=== PATIENT | male | born 1930 | race Caucasian/White ===

== ENCOUNTER 2017-11-03 13:02 | Observation (INO) | payer MEDICARE, BC ==
[2017-11-03] MEDS ORDERED: Aspirin 81 MG Tab.Chew PO ONE (13:07)
--- NOTE | 2017-11-03 13:13 | EDM.PDOC ---
ED HPI GENERAL MEDICAL PROBLEM - General Chief Complaint: Chest Pain Stated Complaint: PT WOULD LIKE TO BE SEEN Time Seen by Provider: 11/03/17 13:07 Source of Information: Reports: Patient History Limitations: Reports: No Limitations - History of Present Illness INITIAL COMMENTS - FREE TEXT/NARRATIVE: HISTORY AND PHYSICAL: History of present illness: Patient is an 87-year-old male who presents to the emergency room today with complaints of "memory being off" and a episode of chest pain that occurred last night. A family friend had visited the patient this morning when he told her that he had chest pain last evening. They continued to talk and she felt that he appeared slightly confused. She states this confusion is "sometimes normal" but wanted him evaluated. The family friend reports that "for him to mention he had chest pain and must had been bothering him". Patient does live alone and has family and friends that check on him frequently. Currently patient states that he feels like his "memory is off" and does not remember telling the family friend about the chest pain episode. He denies pain anywhere or any systemic complaints. Patient denies any fever, chills, headache or change in vision. He denies any chest pain, shortness of breath, abdominal pain, nausea, vomiting or diarrhea/constipation. Denies any recent falls, trauma or injury. Patient has a past medical history of hypertension, depression and BPH. Former smoker. Denies any personal cardiac history or VA. Review of systems: As per history of present illness and below otherwise all systems reviewed and negative. Past medical history: As per history of present illness and as reviewed below otherwise noncontributory. Surgical history: As per history of present illness and as reviewed below otherwise noncontributory. Social history: No reported history of drug or alcohol abuse. Family history: As per history of present illness and as reviewed below otherwise noncontributory. Physical exam: General: Well-developed and well-nourished 87-year-old male. Alert and oriented. Nontoxic appearing and in no acute distress. HEENT: Atraumatic, normocephalic, pupils equal and reactive bilaterally, negative for conjunctival pallor or scleral icterus, mucous membranes moist, throat clear, neck supple, nontender, trachea midline. No drooling or trismus noted. No meningeal signs Lungs: Clear to auscultation, breath sounds equal bilaterally, chest nontender. Heart: S1S2, regular rate and rhythm without overt murmur Abdomen: Soft, nondistended, nontender. Negative for masses or hepatosplenomegaly. Negative for costovertebral tenderness. Pelvis: Stable nontender. Genitourinary: Deferred. Rectal: Deferred. Skin: Intact, warm, dry. No lesions or rashes noted. Extremities: Atraumatic, moves all extremities per self without difficulty or deficits. Gait is steady and even. He is negative for cords or calf pain. Neurovascular unremarkable. Neuro: Awake, alert, oriented. Cranial nerves II through XII unremarkable. Cerebellum unremarkable. Motor and sensory unremarkable throughout. Exam nonfocal. Notes: Patient appears alert and oriented. Will do a cardiac workup with head CT. No defiects noted, no slurred speech, or weakness. GCS 15. Vitals remain stable. Patient remains pain free. Chest x-ray is normal; no sign of pneumonia or infiltrate. Lab work is within normal limits. I encouraged the patient to stay for observation for his chest pain to rule out VA and to observe his confusion. Initially the patient was agreeable to staying. The family friend states that he has changed his mind and is unsure if he wants to stay overnight at the hospital. He is currently on the phone with his daughter to consult her. Patient agreeable to staying for observation. Dr. Prescott (Resident) here to evaluate patient for admission. Diagnostics: CBC, CMP, troponin, EKG, chest x-ray, head CT Therapeutics: Saline lock, aspirin Impression: Chest Pain r/o VA Confusion Plan: Observation telemetry Definitive disposition and diagnosis as appropriate pending reevaluation and review of above. Chest Pain Score (Numeric/FACES): 0 - Related Data Allergies Allergy/AdvReac Type Severity Reaction Status Date / Time No Known Allergies Allergy Verified 11/03/17 13:16 Home Meds: Home Meds Hydrochlorothiazide/Losartan [Hyzaar 50-12.5 MG] 0.5 tab PO DAILY 11/16/14 [ History] Tamsulosin [Flomax] 1 tab PO DAILY 11/16/14 [History] Aspirin [Halfprin] 81 mg PO ONETIME 09/13/16 [History] Cod Liver Oil 0 ml PO DAILY 09/13/16 [History] Losartan [Cozaar] 1 tab PO DAILY 09/13/16 [History] Multivitamin [Multivitamins] 1 cap PO DAILY 09/13/16 [History] Past Medical History HEENT History: Reports: None Cardiovascular History: Reports: Hypertension Respiratory History: Reports: None Gastrointestinal History: Reports: None Genitourinary History: Reports: Chronic Renal Insuffiency Musculoskeletal History: Reports: None Neurological History: Reports: Other (See Below) Other Neuro History: memory loss, pt describes as "short term memory loss" Psychiatric History: Reports: Anxiety, Depression Endocrine/Metabolic History: Reports: None Hematologic History: Reports: Anemia Immunologic History: Reports: None Oncologic (Cancer) History: Reports: None Dermatologic History: Reports: None - Infectious Disease History Infectious Disease History: Reports: C-Difficile Social & Family History - Family History Family Medical History: Noncontributory - Tobacco Use Smoking Status *Q: Former Smoker Years of Tobacco use: 10 - Caffeine Use Caffeine Use: Reports: Coffee Caffeine Use Comment: 5/day - Alcohol Use Days Per Week of Alcohol Use: 4 Number of Drinks Per Day: 1 Total Drinks Per Week: 4 - Recreational Drug Use Recreational Drug Use: No ED ROS GENERAL - Review of Systems Review Of Systems: ROS reveals no pertinent complaints other than HPI. ED EXAM, GENERAL - Physical Exam Exam: See Below (See dictation) EKG INTERPRETATION EKG Date: 11/03/17 Time: 13:17 Rhythm: NSR Rate (Beats/Min): 85 Comparison: NA - No Prior EKG Course - Vital Signs Last Recorded V/S: Last Vital Signs Temp 97.8 F 11/03/17 20:00 Pulse 69 11/03/17 20:00 Resp 18 11/03/17 20:00 BP 120/63 11/03/17 20:00 Pulse Ox 95 11/03/17 20:00 - Orders/Labs/Meds Orders: Medication Orders Aspirin (Halfprin) 81 mg PO DAILY [facility] Last Admin: 11/03/17 15:52 Dose: 81 mg Enoxaparin Sodium (Lovenox) 40 mg SUBCUT Q24H [facility] Last Admin: 11/03/17 15:52 Dose: 40 mg HCTZ/Losartan Potassium (Hyzaar 50-12.5 Mg) 0.5 tab PO DAILY [facility] Ibuprofen (Motrin) 400 mg PO Q6H PRN PRN Reason: Pain (mild 1-3) Losartan Potassium (Cozaar) 25 mg PO DAILY [facility] Morphine Sulfate (Morphine) 2 mg IVPUSH Q2H PRN PRN Reason: Pain (severe 7-10) Stop: 11/04/17 15:09 Ondansetron HCl (Zofran) 4 mg IVPUSH Q4H PRN PRN Reason: Nausea/Vomiting Sodium Chloride (Saline Flush) 10 ml FLUSH ASDIRECTED PRN PRN Reason: Keep Vein Open Sodium Chloride (Saline Flush) 2.5 ml FLUSH ASDIRECTED PRN PRN Reason: Keep Vein Open Tamsulosin HCl (Flomax) 0.4 mg PO DAILY [facility] Labs: Laboratory Tests 11/03/17 11/03/17 11/03/17 Range/Units 13:16 13:16 13:16 WBC 5.29 (4.0-11.0) K/uL RBC 4.25 L (4.50-5.90) M/uL Hgb 13.2 (13.0-17.0) g/dL Hct 38.9 (38.0-50.0) % MCV 91.5 (80.0-98.0) fL MCH 31.1 (27.0-32.0) pg MCHC 33.9 (31.0-37.0) g/dL RDW Std Deviation 44.9 (28.0-62.0) fl RDW Coeff of Eugenia 14 (11.0-15.0) % Plt Count 138 L (150-400) K/uL MPV 10.00 (7.40-12.00) fL Neut % (Auto) 69.0 (48.0-80.0) % Lymph % (Auto) 17.4 (16.0-40.0) % [place] % (Auto) 8.1 (0.0-15.0) % Eos % (Auto) 5.3 (0.0-7.0) % Baso % (Auto) 0.2 (0.0-1.5) % Neut # (Auto) 3.7 (1.4-5.7) K/uL Lymph # (Auto) 0.9 (0.6-2.4) K/uL [place] # (Auto) 0.4 (0.0-0.8) K/uL Eos # (Auto) 0.3 (0.0-0.7) K/uL Baso # (Auto) 0.0 (0.0-0.1) K/uL Nucleated RBC % 0.0 /100WBC Nucleated RBCs # 0 K/uL Sodium 138 (136-148) mmol/L Potassium 4.1 (3.5-5.1) mmol/L Chloride 104 (98-107) mmol/L Carbon Dioxide 23.1 (21.0-32.0) mmol/L BUN 37 H (7.0-18.0) mg/dL Creatinine 1.8 H (0.8-1.3) mg/dL Est Cr Clr Drug Dosing 32.68 mL/min Estimated GFR (MDRD) 36.0 ml/min Glucose 144 H (74-106) mg/dL Calcium 9.1 (8.5-10.1) mg/dL Magnesium 1.6 (1.5-2.0) mg/dL Total Bilirubin 0.8 (0.2-1.0) mg/dL AST 18 (15-37) IU/L ALT 15 (14-63) IU/L Alkaline Phosphatase 59 (46-116) U/L Troponin I < 0.050 (0.000-0.056) ng/mL Total Protein 7.3 (6.4-8.2) g/dL Albumin 4.0 (3.4-5.0) g/dL Globulin 3.3 (2.0-3.5) g/dL Albumin/Globulin Ratio 1.2 L (1.3-2.8) Urine Color Urine Appearance Urine pH (5.0-8.0) Ur Specific [place] (1.001-1.035) Urine Protein (NEGATIVE) mg/dL Urine Glucose (UA) (NEGATIVE) mg/dL Urine Ketones (NEGATIVE) mg/dL Urine Occult Blood (NEGATIVE) Urine Nitrite (NEGATIVE) Urine Bilirubin (NEGATIVE) Urine Urobilinogen (<2.0) EU/dL Ur Leukocyte Esterase (NEGATIVE) Urine RBC (0-2/HPF) Urine WBC (0-5/HPF) Ur Epithelial Cells (NONE-FEW) Urine Bacteria (NEGATIVE) 11/03/17 Range/Units 14:13 WBC (4.0-11.0) K/uL RBC (4.50-5.90) M/uL Hgb (13.0-17.0) g/dL Hct (38.0-50.0) % MCV (80.0-98.0) fL MCH (27.0-32.0) pg MCHC (31.0-37.0) g/dL RDW Std Deviation (28.0-62.0) fl RDW Coeff of [place] (11.0-15.0) % Plt Count (150-400) K/uL MPV (7.40-12.00) fL Neut % (Auto) (48.0-80.0) % Lymph % (Auto) (16.0-40.0) % [place] % (Auto) (0.0-15.0) % Eos % (Auto) (0.0-7.0) % Baso % (Auto) (0.0-1.5) % Neut # (Auto) (1.4-5.7) K/uL Lymph # (Auto) (0.6-2.4) K/uL [place] # (Auto) (0.0-0.8) K/uL Eos # (Auto) (0.0-0.7) K/uL Baso # (Auto) (0.0-0.1) K/uL Nucleated RBC % /100WBC Nucleated RBCs # K/uL Sodium (136-148) mmol/L Potassium (3.5-5.1) mmol/L Chloride (98-107) mmol/L Carbon Dioxide (21.0-32.0) mmol/L BUN (7.0-18.0) mg/dL Creatinine (0.8-1.3) mg/dL Est Cr Clr Drug Dosing mL/min Estimated GFR (MDRD) ml/min Glucose (74-106) mg/dL Calcium (8.5-10.1) mg/dL Magnesium (1.5-2.0) mg/dL Total Bilirubin (0.2-1.0) mg/dL AST (15-37) IU/L ALT (14-63) IU/L Alkaline Phosphatase (46-116) U/L Troponin I (0.000-0.056) ng/mL Total Protein (6.4-8.2) g/dL Albumin (3.4-5.0) g/dL Globulin (2.0-3.5) g/dL Albumin/Globulin Ratio (1.3-2.8) Urine Color YELLOW Urine Appearance CLEAR Urine pH 6.5 (5.0-8.0) Ur Specific [place] 1.015 (1.001-1.035) Urine Protein NEGATIVE (NEGATIVE) mg/dL Urine Glucose (UA) NEGATIVE (NEGATIVE) mg/dL Urine Ketones NEGATIVE (NEGATIVE) mg/dL Urine Occult Blood NEGATIVE (NEGATIVE) Urine Nitrite NEGATIVE (NEGATIVE) Urine Bilirubin NEGATIVE (NEGATIVE) Urine Urobilinogen 0.2 (<2.0) EU/dL Ur Leukocyte Esterase NEGATIVE (NEGATIVE) Urine RBC 0-1 (0-2/HPF) Urine WBC 0-1 (0-5/HPF) Ur Epithelial Cells RARE (NONE-FEW) Urine Bacteria RARE (NEGATIVE) Meds: Medications Generic Name Dose Route Start Last Admin Trade Name Chalo PRN Reason Stop Dose Admin Aspirin 81 mg 11/03/17 15:30 11/03/17 15:52 Halfprin PO 81 mg DAILY [facility] Administration Enoxaparin Sodium 40 mg 11/03/17 15:15 11/03/17 15:52 Lovenox SUBCUT 40 mg Q24H [facility]AT[facility] Administration HCTZ/Losartan Potassium 0.5 tab 11/04/17 09:00 Hyzaar 50-12.5 Mg PO DAILY [facility] Ibuprofen 400 mg 11/03/17 15:07 Motrin PO Q6H PRN Pain (mild 1-3) Losartan Potassium 25 mg 11/04/17 09:00 Cozaar PO DAILY [facility] Morphine Sulfate 2 mg 11/03/17 15:07 Morphine IVPUSH 11/04/17 15:09 Q2H PRN Pain (severe 7-10) Ondansetron HCl 4 mg 11/03/17 15:07 Zofran IVPUSH Q4H PRN Nausea/Vomiting Sodium Chloride 10 ml 11/03/17 15:07 Saline Flush FLUSH ASDIRECTED PRN Keep Vein Open Sodium Chloride 2.5 ml 11/03/17 15:07 Saline Flush FLUSH ASDIRECTED PRN Keep Vein Open Tamsulosin HCl 0.4 mg 11/04/17 09:00 Flomax PO DAILY [facility] Discontinued Medications Generic Name Dose Route Start Last Admin Trade Name Fregoyo PRN Reason Stop Dose Admin Aspirin 81 mg 11/03/17 13:07 11/03/17 13:23 Aspirin PO 11/03/17 13:08 81 mg ONETIME ONE Administration Departure - Departure Time of Disposition: 15:00 Disposition: Refer to Observation Clinical Impression: Chest pain, rule out acute myocardial infarction, Confusion
--- NOTE | 2017-11-03 13:56 | CR ---
EXAMINATION: Portable chest radiograph. HISTORY: Chest pain. FINDINGS: The trachea is midline. The cardiomediastinal silhouette is within normal limits. No pulmonary infilt rates, effusions or pneumothorax. Chronic interstitial prominence. Mild volume loss the left lower lo be. Osseous structures appear unremarkable. IMPRESSION: No acute cardiopulmonary process.
[2017-11-03 14:16] LABS: CHLORIDE,CL 104 mmol/L (98-107); SODIUM,NA 138 mmol/L (136-148)
--- NOTE | 2017-11-03 14:23 | CT ---
EXAMINATION: Non contrast CT head. Coronal and sagittal reformats. HISTORY: Pain FINDINGS: No evidence of intra or extra axial hemorrhage, mass, midline shift, hydrocephalus or edema. Mild ge neralized atrophy. Moderate periventricular and subcortical white matter hypodensities are noted. No hypoattenuation changes in the major vascular territories to suggest acute infarct. No abnormal intracranial calcifications are detected. No evidence of substantial vascular calcificat ions. Paranasal sinuses and mastoid air cells are well aerated without substantial findings. Orbits and gl obes are symmetric. Pituitary fossa appears unremarkable. Calvarium is intact. No evidence of skull fracture. IMPRESSION: 1. No acute intracranial findings. 2. Mild generalized atrophy and moderate small vessel ischemic changes.
--- NOTE | 2017-11-03 15:06 | PCM.HP ---
H&P History of Present Illness - General Date of Service: 11/03/17 Admit Problem/Dx: Admission Diagnosis/Problem Admission Diagnosis/Problem Chest pain, rule out acute myocardial infarction - History of Present Illness Initial Comments - Free Text/Narative: This is a 87-year-old male that is present to the ER secondary to chest pain that started in the morning and resolved. However after speaking with his daughter he was asked to come in to have it assessed. It appears that the patient may also be having some memory relapses as she did not recall telling his daughter that he was having some chest pain. He is also complaining of mild dizziness that started yesterday, he states that this dizziness has been a mildly chronic problem ongoing for the past couple of weeks. He states the dizziness is primarily there when he does stand up. He is on Flomax which is alpha 1 agonist which can cause an exacerbation of orthostatic hypotension. The patient denies any diaphoresis, nausea, vomiting, chills or any other signs of ischemic/cardiac etiology. Patient denies any fevers chills or signs of an infectious process. Chest Pain Score (Numeric/FACES): 0 - Related Data Allergies/Adverse Reactions: Allergies Allergy/AdvReac Type Severity Reaction Status Date / Time No Known Allergies Allergy Verified 11/03/17 13:16 Home Medications: Home Meds Hydrochlorothiazide/Losartan [Hyzaar 50-12.5 MG] 0.5 tab PO DAILY 11/16/14 [ History] Tamsulosin [Flomax] 1 tab PO DAILY 11/16/14 [History] Aspirin [Halfprin] 81 mg PO ONETIME 09/13/16 [History] Cod Liver Oil 0 ml PO DAILY 09/13/16 [History] Losartan [Cozaar] 1 tab PO DAILY 09/13/16 [History] Multivitamin [Multivitamins] 1 cap PO DAILY 09/13/16 [History] Past Medical History HEENT History: Reports: None Cardiovascular History: Reports: Hypertension Respiratory History: Reports: None Gastrointestinal History: Reports: None Genitourinary History: Reports: Chronic Renal Insuffiency Musculoskeletal History: Reports: None Neurological History: Reports: Other (See Below) Other Neuro History: memory loss, pt describes as "short term memory loss" Psychiatric History: Reports: Anxiety, Depression Other Psychiatric History: confusion Endocrine/Metabolic History: Reports: None Hematologic History: Reports: Anemia Immunologic History: Reports: None Oncologic (Cancer) History: Reports: None Dermatologic History: Reports: None - Infectious Disease History Infectious Disease History: Reports: C-Difficile Social & Family History - Family History Family Medical History: Noncontributory - Tobacco Use Smoking Status *Q: Former Smoker Years of Tobacco use: 10 - Caffeine Use Caffeine Use: Reports: Coffee Caffeine Use Comment: 5/day - Alcohol Use Days Per Week of Alcohol Use: 4 Number of Drinks Per Day: 1 Total Drinks Per Week: 4 - Recreational Drug Use Recreational Drug Use: No H&P Review of Systems - Review of Systems: Review Of Systems: ROS reveals no pertinent complaints other than HPI. Exam - Exam Exam: See Below - Vital Signs Vital Signs: Last Vital Signs Temp 36.7 C 11/03/17 13:12 Pulse 70 11/03/17 14:46 Resp 18 11/03/17 14:46 BP 155/80 H 11/03/17 14:46 Pulse Ox 97 11/03/17 14:46 Weight: 77 kg - Exam Quality Assessment: Supplemental Oxygen General: Alert, Oriented, Cooperative HEENT: Conjunctiva Clear Neck: Supple Lungs: Clear to Auscultation, Normal Respiratory Effort Cardiovascular: Regular Rate, Regular Rhythm GI/Abdominal Exam: Normal Bowel Sounds, Soft, Non-Tender Extremities: Normal Inspection, Normal Range of Motion, Non-Tender - Patient Data Lab Results Last 24 hrs: Laboratory Results - last 24 hr 11/03/17 11/03/17 11/03/17 Range/Units 13:16 13:16 14:13 WBC 5.29 (4.0-11.0) K/uL RBC 4.25 L (4.50-5.90) M/uL Hgb 13.2 (13.0-17.0) g/dL Hct 38.9 (38.0-50.0) % MCV 91.5 (80.0-98.0) fL MCH 31.1 (27.0-32.0) pg MCHC 33.9 (31.0-37.0) g/dL RDW Std Deviation 44.9 (28.0-62.0) fl RDW Coeff of Eugenia 14 (11.0-15.0) % Plt Count 138 L (150-400) K/uL MPV 10.00 (7.40-12.00) fL Neut % (Auto) 69.0 (48.0-80.0) % Lymph % (Auto) 17.4 (16.0-40.0) % [place] % (Auto) 8.1 (0.0-15.0) % Eos % (Auto) 5.3 (0.0-7.0) % Baso % (Auto) 0.2 (0.0-1.5) % Neut # (Auto) 3.7 (1.4-5.7) K/uL Lymph # (Auto) 0.9 (0.6-2.4) K/uL [place] # (Auto) 0.4 (0.0-0.8) K/uL Eos # (Auto) 0.3 (0.0-0.7) K/uL Baso # (Auto) 0.0 (0.0-0.1) K/uL Nucleated RBC % 0.0 /100WBC Nucleated RBCs # 0 K/uL Sodium 138 (136-148) mmol/L Potassium 4.1 (3.5-5.1) mmol/L Chloride 104 (98-107) mmol/L Carbon Dioxide 23.1 (21.0-32.0) mmol/L BUN 37 H (7.0-18.0) mg/dL Creatinine 1.8 H (0.8-1.3) mg/dL Est Cr Clr Drug Dosing 32.68 mL/min Estimated GFR (MDRD) 36.0 ml/min Glucose 144 H (74-106) mg/dL Calcium 9.1 (8.5-10.1) mg/dL Total Bilirubin 0.8 (0.2-1.0) mg/dL AST 18 (15-37) IU/L ALT 15 (14-63) IU/L Alkaline Phosphatase 59 (46-116) U/L Troponin I < 0.050 (0.000-0.056) ng/mL Total Protein 7.3 (6.4-8.2) g/dL Albumin 4.0 (3.4-5.0) g/dL Globulin 3.3 (2.0-3.5) g/dL Albumin/Globulin Ratio 1.2 L (1.3-2.8) Urine Color YELLOW Urine Appearance CLEAR Urine pH 6.5 (5.0-8.0) Ur Specific [place] 1.015 (1.001-1.035) Urine Protein NEGATIVE (NEGATIVE) mg/dL Urine Glucose (UA) NEGATIVE (NEGATIVE) mg/dL Urine Ketones NEGATIVE (NEGATIVE) mg/dL Urine Occult Blood NEGATIVE (NEGATIVE) Urine Nitrite NEGATIVE (NEGATIVE) Urine Bilirubin NEGATIVE (NEGATIVE) Urine Urobilinogen 0.2 (<2.0) EU/dL Ur Leukocyte Esterase NEGATIVE (NEGATIVE) Urine RBC 0-1 (0-2/HPF) Urine WBC 0-1 (0-5/HPF) Ur Epithelial Cells RARE (NONE-FEW) Urine Bacteria RARE (NEGATIVE) Result Diagrams: 11/03/17 13:16 11/03/17 13:16 Problem List Initiated/Reviewed/Updated: Yes Orders Last 24hrs: Active Orders 24 hr Category Date Time Status Admission Status [Patient Status] [ADT] Stat ADT 11/03/17 14:23 Active Cardiac Monitoring [RC] Q8H Care 11/03/17 14:23 Active EKG Documentation Completion [RC] STAT Care 11/03/17 13:07 Active UA W/MICROSCOPIC [URIN] Stat Lab 11/03/17 14:13 Ordered Assessment/Plan Comment:: This is a 87-year-old male presenting with a acute history of chest pain, dizziness that all resolved prior to coming to the ER most likely etiology is likely secondary to possible orthostatic hypotension that may be medication induced versus musculoskeletal pain however acute coronary syndrome etiology must be ruled out. -Troponins 3, orthostatic vitals, cardiac monitoring, EKG Provided the patient's troponins are negative 3, and his orthostatic vitals are within normal limits patient shall be discharged in the a.m. Patient shall be admitted under observation with the intended length of stay being less than 2 midnights.
[2017-11-03] MEDS ORDERED: Sodium Chloride 0.9% 10 ML Syringe FLUSH PRN (15:07)
[2017-11-03] MEDS ORDERED: Morphine 4 MG/ML Syringe IVPUSH PRN (15:07)
[2017-11-03] MEDS ORDERED: Sodium Chloride 0.9% 2.5 ML Syringe FLUSH PRN (15:07)
[2017-11-03] MEDS ORDERED: Ondansetron 4 MG/2 ML SDV IVPUSH PRN (15:07)
[2017-11-03] MEDS ORDERED: Ibuprofen 400 MG Tab PO PRN (15:07)
[2017-11-03] MEDS ORDERED: Enoxaparin 40 MG/0.4 ML Syringe SUBCUT SCH (15:15)
[2017-11-03] MEDS: Aspirin 81 MG Tab.EC PO SCH (15:52)
[2017-11-04] MEDS: Aspirin 81 MG Tab.EC PO SCH (08:43)
[2017-11-04 08:44] VITALS: BP 137/63
[2017-11-04] MEDS ORDERED: Hydrochlorothiazide/Losartan 12.5-50 mg Tab PO SCH (09:00)
[2017-11-04] MEDS ORDERED: Losartan 50 MG Tab PO SCH (09:00)
[2017-11-04] MEDS ORDERED: Tamsulosin 0.4 MG Cap.ER PO SCH (09:00)
== END 2017-11-04 10:30 | disposition home or self-care (01) ==
LOC: MW.ED 13:02 → MW.MS 14:23
PROVIDERS: ADMIT Family Medicine; ATTEND Family Medicine
DX: R07.9 Chest pain, unspecified (principal); R42 Dizziness and giddiness; I95.1 Orthostatic hypotension; N18.9 Chronic kidney disease, unspecified; I12.9 Hypertensive chronic kidney disease with stage 1 through stage 4 chronic kidney disease, or unspecified chronic kidney disease; F41.9 Anxiety disorder, unspecified; F32.9 Major depressive disorder, single episode, unspecified; N40.0 Benign prostatic hyperplasia without lower urinary tract symptoms; Z79.899 Other long term (current) drug therapy; Z79.82 Long term (current) use of aspirin; Z87.891 Personal history of nicotine dependence
CPT/HCPCS: 36415; 70450; 71045; 80053; 81001; 83735; 84484; 85025; 93005; 99285; A9270; J1650; 96372; G0378

== ENCOUNTER 2018-04-25 11:36 | Emergency (ER) | payer MEDICARE, BC ==
--- NOTE | 2018-04-25 12:25 | CT ---
EXAMINATION: CT cervical spine HISTORY: Pain COMPARISON: None TECHNIQUE: Axial CT images obtained through the cervical spine without contrast. Coronal and sagittal reconstructions obtained. FINDINGS: The cervical spinal alignment is normal. Vertebral body heights appear maintained. Moderate disc space narrowing and mild osteophyte disc complexes noted at C4-C5 and C5-C6. No mineralization is mildly osteopenic. There is no fracture or acute osseous abnormality. Paravertebral soft tissues a ppear normal. There is calcified granuloma within the right apex. Mild carotid artery calcifications. IMPRESSION: 1. Mild to moderate degenerative changes noted within the cervical spine without an acute osseous abn ormality.
--- NOTE | 2018-04-25 12:28 | CT ---
EXAMINATION: Non contrast CT head. Coronal and sagittal reformats. HISTORY: Injury FINDINGS: No evidence of intra or extra axial hemorrhage, mass, midline shift, hydrocephalus or edema. Moderat e periventricular and subcortical white matter hypodensities noted. No hypoattenuation changes in the major vascular territories to suggest acute infarct. No abnormal intracranial calcifications are detected. No evidence of substantial vascular calcificat ions. Paranasal sinuses and mastoid air cells are well aerated without substantial findings. Orbits and gl obes are symmetric. Pituitary fossa appears unremarkable. Calvarium is intact. No evidence of skull fracture. IMPRESSION: 1. No acute intracranial findings. 2. Mild to moderate small vessel ischemic changes.
--- NOTE | 2018-04-25 12:54 | EDM.PDOC ---
ED HPI GENERAL MEDICAL PROBLEM - General Chief Complaint: Neck Problem Stated Complaint: FALL Time Seen by Provider: 04/25/18 12:50 Source of Information: Reports: Patient - History of Present Illness INITIAL COMMENTS - FREE TEXT/NARRATIVE: HISTORY AND PHYSICAL: History of present illness: [ Patient presents post fall from standing position Earlier today he was at the eye doctor he was crossing over to [facility] by foot walking over some [place]aping and had a fall patient states on outstretched hands he did cut his fingertips and break his glasses, he denies head injury or loss of consciousness and appears to be alert and reliable His daughters with him and states that he seems a little off and is uncertain if he is reliable and has history Otherwise he has no fever nausea vomiting chills sweats no chest pain shortness breath headache dizziness or palpitation no bowel or urine symptoms He presents for neck pain 8 out of 10 worse with movement nonradiating pain ] Review of systems: As per history of present illness and below otherwise all systems reviewed and negative. Past medical history: As per history of present illness and as reviewed below otherwise noncontributory. Surgical history: As per history of present illness and as reviewed below otherwise noncontributory. Social history: No reported history of drug or alcohol abuse. Family history: As per history of present illness and as reviewed below otherwise noncontributory. Physical exam: HEENT: Atraumatic, normocephalic, pupils reactive, negative for conjunctival pallor or scleral icterus, mucous membranes moist, throat clear, neck supple, nontender, trachea midline. Lungs: Clear to auscultation, breath sounds equal bilaterally, chest nontender. Heart: S1S2, regular, negative for clicks, rubs, or JVD. Abdomen: Soft, nondistended, nontender. Negative for masses or hepatosplenomegaly. Negative for costovertebral tenderness. Pelvis: Stable nontender. Genitourinary: Deferred. Rectal: Deferred. Extremities: Atraumatic, negative for cords or calf pain. Neurovascular unremarkable. Neuro: Awake, alert, oriented. Cranial nerves II through XII unremarkable. Cerebellum unremarkable. Motor and sensory unremarkable throughout. Exam nonfocal. Diagnostics: [Head CT no contrast Cervical spine CT no contrast ] Therapeutics: [Tylenol Flexeril 5 mg Neosporin/bandaging Impression: [ cervical muscle spasm ] Minor abrasions and cuts on fingertips-O sutures required Definitive disposition and diagnosis as appropriate pending reevaluation and review of above. neck Pain Score (Numeric/FACES): 4 - Related Data Allergies Allergy/AdvReac Type Severity Reaction Status Date / Time No Known Allergies Allergy Verified 04/25/18 12:09 Home Meds: Home Meds Hydrochlorothiazide/Losartan [Hyzaar 50-12.5 MG] 0.5 tab PO DAILY 11/16/14 [ History] Tamsulosin [Flomax] 1 tab PO DAILY 11/16/14 [History] Aspirin [Halfprin] 81 mg PO ONETIME 09/13/16 [History] Cod Liver Oil 0 ml PO DAILY 09/13/16 [History] Losartan [Cozaar] 1 tab PO DAILY 09/13/16 [History] Multivitamin [Multivitamins] 1 cap PO DAILY 09/13/16 [History] Past Medical History HEENT History: Reports: None Cardiovascular History: Reports: Hypertension Respiratory History: Reports: None Gastrointestinal History: Reports: None Genitourinary History: Reports: Chronic Renal Insuffiency Musculoskeletal History: Reports: None Neurological History: Reports: Other (See Below) Other Neuro History: memory loss, pt describes as "short term memory loss" Psychiatric History: Reports: Anxiety, Depression Other Psychiatric History: confusion Endocrine/Metabolic History: Reports: None Hematologic History: Reports: Anemia Immunologic History: Reports: None Oncologic (Cancer) History: Reports: None Dermatologic History: Reports: None - Infectious Disease History Infectious Disease History: Reports: C-Difficile Social & Family History - Family History Family Medical History: Noncontributory - Caffeine Use Caffeine Use: Reports: Coffee Caffeine Use Comment: 5/day ED ROS GENERAL - Review of Systems Review Of Systems: See Below ED EXAM, GENERAL - Physical Exam Exam: See Below Course - Vital Signs Last Recorded V/S: Last Vital Signs Temp 98.2 F 04/25/18 11:36 Pulse 95 04/25/18 11:36 Resp 18 04/25/18 11:36 BP 132/76 04/25/18 11:36 Pulse Ox 97 04/25/18 11:36 Departure - Departure Time of Disposition: 12:53 Disposition: Home, Self-Care 01 Condition: Good Clinical Impression: Multiple abrasions, Cervical paraspinal muscle spasm - Discharge Information Referrals: Guillermo Cobos MD [Primary Care Provider] - Additional Instructions: The following information is given to patients seen in the emergency department who are being discharged to home. This information is to outline your options for follow-up care. We provide all patients seen in our emergency department with a follow-up referral. The need for follow-up, as well as the timing and circumstances, are variable depending upon the specifics of your emergency department visit. If you don't have a primary care physician on staff, we will provide you with a referral. We always advise you to contact your personal physician following an emergency department visit to inform them of the circumstance of the visit and for follow-up with them and/or the need for any referrals to a consulting specialist. The emergency department will also refer you to a specialist when appropriate. This referral assures that you have the opportunity for follow-up care with a specialist. All of these measure are taken in an effort to provide you with optimal care, which includes your follow-up. Under all circumstances we always encourage you to contact your private physician who remains a resource for coordinating your care. When calling for follow-up care, please make the office aware that this follow-up is from your recent emergency room visit. If for any reason you are refused follow-up, please contact the [facility] emergency department at and asked to speak to the emergency department charge nurse.
[2018-04-25] MEDS ORDERED: Bacitracin Oint 1 GM U/D Packet TOP ONE (13:01)
[2018-04-25] MEDS ORDERED: Bacitracin Oint 1 GM U/D Packet ONE (13:02)
[2018-04-25 13:12] VITALS: BP 134/76
== END 2018-04-25 13:10 | disposition home or self-care (01) ==
LOC: MW.ED 11:36
DX: S61.219A Laceration without foreign body of unspecified finger without damage to nail, initial encounter (principal); M62.838 Other muscle spasm; S00.31XA Abrasion of nose, initial encounter; N18.9 Chronic kidney disease, unspecified; Z79.82 Long term (current) use of aspirin; Z79.899 Other long term (current) drug therapy; I12.9 Hypertensive chronic kidney disease with stage 1 through stage 4 chronic kidney disease, or unspecified chronic kidney disease; W17.89XA Other fall from one level to another, initial encounter
CPT/HCPCS: 70450; 70450-26; 72125; 72125-26; 99284-25

== ENCOUNTER 2019-08-27 11:24 | Inpatient (IN) | payer MEDICARE, BC ==
--- NOTE | 2019-08-27 12:04 | CT ---
INDICATION: Stroke code. Right hand weakness. TECHNIQUE: Head CT without contrast. COMPARISON: July 21, 2018. FINDINGS: CSF spaces: Within normal limits for age. Brain parenchyma and extra-axial spaces: There are nonspecific low attenuation white matter changes consistent with chronic microvascular disease. No sign of mass, hemorrhage, or midline shift. Skull base and calvarium: The visualized paranasal sinuses and mastoid air cells demonstrate no acute or significant findings. The visualized orbits are grossly unremarkable. No skull fractures. IMPRESSION: No convincing evidence for acute CVA, hemorrhage, or mass effect. Stable age-related changes. No significant change from the prior exam. Please note that all CT scans at this facility use dose modulation, iterative reconstruction, and/or weight-based dosing when appropriate to reduce radiation dose to as low as reasonably achievable. Dictated by Yakov Hurtado MD @ Aug 27 2019 11:57AM Signed by Dr. Yakov Hurtado @ Aug 27 2019 12:02PM
[2019-08-27 12:37] LABS: BLOOD UREA NITROGEN,BUN 42 mg/dL (7.0-18.0); CARBON DIOXIDE,CO2 22.1 mmol/L (21.0-32.0); CHLORIDE,CL 109 mmol/L (98-107); GLUCOSE RANDOM 104 mg/dL (74-106); POTASSIUM,K 4.2 mmol/L (3.5-5.1); SODIUM,NA 144 mmol/L (136-148)
--- NOTE | 2019-08-27 13:40 | CR ---
Chest: Frontal view of the chest was obtained utilizing portable technique. Comparison: Prior chest x-ray of 06/21/18. Chronic appearing interstitial change is noted throughout both lungs. Slight nodularity is noted within the right upper lung also believed to be stable. No acute parenchymal change is seen. Heart size is normal. Tortuous thoracic aorta is seen. Bony structures are grossly intact. Impression: 1. Findings as noted above. No significant change from prior chest x-ray is seen. 2. Nothing acute is identified. Diagnostic code #2 This report was dictated in [place] Standard Time
--- NOTE | 2019-08-27 14:45 | EDM.PDOC ---
ED [facility] GENERAL MEDICAL PROBLEM - General Chief Complaint: Neurological Problem Stated Complaint: STROKE CODE Time Seen by Provider: 08/27/19 12:00 Source of Information: Reports: EMS, Family History Limitations: Reports: No Limitations - History of Present Illness INITIAL COMMENTS - FREE TEXT/NARRATIVE: Patient is an 89-year-old male with past medical history of high blood pressure and dementia presenting with EMS for possible stroke. Patient is accompanied by daughter who states that the patient lives alone and he was last seen well last night. Patient states she called him several times this morning with no response and went to the house and found him in bed. She was concerned about decreased use of the right arm as well as increased confusion. She called 911 and when EMS arrived they noticed he had right arm weakness and found him to be confused and called a stroke code in the emergency department. Per daughter, he is now at his baseline level of confusion and seems to be interacting at baseline. However, she is concerned that he is been having weakness in his right hand and decreased ability to read. In addition, the patient reports having a fall last night where he struck the right side of his chest and has some bruising on the chest. In addition to that documented in the HPI above, the additional ROS was obtained : Constitutional: Denies fevers or chills Eyes: Denies vision changes ENMT: Denies sore throat CV: Denies chest pain Resp: Denies SOB GI: Denies vomiting or diarrhea : Denies painful urination MSK: Denies recent trauma Skin: Denies new rashes Neuro: Per HPI Endocrine: Denies unexpected weight loss Heme: Denies bleeding disorders I have reviewed the triage vital signs Const: Well nourished, well developed, appears stated age Eyes: PERRL, no conjunctival injection HENT: NCAT, Neck supple without meningismus CV: RRR, Warm, well-perfused extremities RESP: CTAB, Unlabored respiratory effort GI: soft, non-tender, non-distended, no masses MSK: No gross deformities appreciated Skin: Warm, dry. No rashes Neuro: Alert, oriented x1 fisher diver net II-XII grossly intact. Patient has weakness of his right hand as well as his right thigh. Sensation is intact. Finger-nose- finger intact. Psych: Appropriate mood and affect Assessment plan: Patient is a 89-year-old male presenting with concerns for stroke. Patient is outside the window for TPA given last known well time of last night. In addition, the patient has chronic kidney disease and therefore not a good candidate for CT angiogram. An MRI was performed which showed numerous small strokes concerning for embolic phenomena. Patient will be admitted to the inpatient medicine team for further work-up of etiology of the stroke. All questions addressed and answered. Patient and daughter agree with plan. - Related Data Allergies Allergy/AdvReac Type Severity Reaction Status Date / Time bupropion [From Wellbutrin] Allergy Other Verified 08/27/19 11:35 citalopram Allergy Other Verified 08/27/19 11:35 Home Meds: Home Meds Tamsulosin [Flomax] 0.4 mg PO DAILY 11/16/14 [History] Cod Liver Oil 1 tab PO DAILY 09/13/16 [History] Losartan [Cozaar] 12.5 mg PO DAILY 09/13/16 [History] Multivitamin [Multivitamins] 1 cap PO DAILY 09/13/16 [History] hydroCHLOROthiazide [Hydrochlorothiazide] 12.5 mg PO DAILY 07/21/18 [History] Aspirin [Adult Low Dose Aspirin EC] 81 mg PO DAILY 08/27/19 [History] Past Medical History HEENT History: Reports: Impaired Vision, Other (See Below) Other HEENT History: wears glasses Cardiovascular History: Reports: Hypertension Respiratory History: Reports: None Gastrointestinal History: Reports: None Genitourinary History: Reports: Chronic Renal Insuffiency Musculoskeletal History: Reports: None Neurological History: Reports: Other (See Below) Other Neuro History: memory loss, pt describes as "short term memory loss" Psychiatric History: Reports: Anxiety, Depression Other Psychiatric History: confusion Endocrine/Metabolic History: Reports: None Hematologic History: Reports: Anemia Immunologic History: Reports: None Oncologic (Cancer) History: Reports: None Dermatologic History: Reports: None - Infectious Disease History Infectious Disease History: Reports: None Other Infectious Disease History: tuberculosis - Past Surgical History HEENT Surgical History: Reports: None Cardiovascular Surgical History: Reports: None Neurological Surgical History: Reports: None Social & Family History - Family History Family Medical History: Noncontributory - Tobacco Use Smoking Status *Q: Unknown Ever Smoked - Caffeine Use Caffeine Use: Reports: None Caffeine Use Comment: 5/day - Recreational Drug Use Recreational Drug Use: No ED ROS GENERAL - Review of Systems Review Of Systems: See Below ED EXAM, NEURO - Physical Exam Exam: See Below Course - Vital Signs Last Recorded V/S: Last Vital Signs Temp 37.6 C 08/27/19 16:01 Pulse 82 08/27/19 16:01 Resp 16 08/27/19 16:01 BP 145/95 H 08/27/19 16:01 Pulse Ox 96 08/27/19 16:01 - Orders/Labs/Meds Orders: Active Orders 24 hr Category Date Time Status Admission Status [Patient Status] [ADT] Stat ADT 08/27/19 15:09 Active Labs: Laboratory Tests 08/27/19 08/27/19 08/27/19 Range/Units 12:04 12:04 12:04 WBC 6.41 (4.0-11.0) K/uL RBC 3.80 L (4.50-5.90) M/uL Hgb 11.9 L (13.0-17.0) g/dL Hct 35.9 L (38.0-50.0) % MCV 94.5 (80.0-98.0) fL MCH 31.3 (27.0-32.0) pg MCHC 33.1 (31.0-37.0) g/dL RDW Std Deviation 46.3 (28.0-62.0) fl RDW Coeff of Eugenia 14 (11.0-15.0) % Plt Count 112 L (150-400) K/uL MPV 10.90 (7.40-12.00) fL Neut % (Auto) 65.4 (48.0-80.0) % Lymph % (Auto) 17.9 (16.0-40.0) % [place] % (Auto) 11.1 (0.0-15.0) % Eos % (Auto) 5.3 (0.0-7.0) % Baso % (Auto) 0.3 (0.0-1.5) % Neut # (Auto) 4.2 (1.4-5.7) K/uL Lymph # (Auto) 1.2 (0.6-2.4) K/uL [place] # (Auto) 0.7 (0.0-0.8) K/uL Eos # (Auto) 0.3 (0.0-0.7) K/uL Baso # (Auto) 0.0 (0.0-0.1) K/uL Nucleated RBC % 0.0 /100WBC Nucleated RBCs # 0 K/uL INR 1.00 Sodium 144 (136-148) mmol/L Potassium 4.2 (3.5-5.1) mmol/L Chloride 109 H (98-107) mmol/L Carbon Dioxide 22.1 (21.0-32.0) mmol/L BUN 42 H (7.0-18.0) mg/dL Creatinine 1.9 H (0.8-1.3) mg/dL Est Cr Clr Drug Dosing 28.12 mL/min Estimated GFR (MDRD) 33.7 ml/min Glucose 104 (74-106) mg/dL Calcium 8.6 (8.5-10.1) mg/dL Total Bilirubin 0.5 (0.2-1.0) mg/dL AST 17 (15-37) IU/L ALT 17 (14-63) IU/L Alkaline Phosphatase 58 (46-116) U/L Troponin I < 0.050 (0.000-0.056) ng/mL Total Protein 6.3 L (6.4-8.2) g/dL Albumin 3.5 (3.4-5.0) g/dL Globulin 2.8 (2.6-4.0) g/dL Albumin/Globulin Ratio 1.2 (0.9-1.6) Departure - Departure Time of Disposition: 16:15 Disposition: Admitted As Inpatient 68 Clinical Impression: Stroke - Discharge Information Sepsis Event Note - Evaluation Sepsis Screening Result: No Definite Risk - Focused Exam Vital Signs: Vital Signs Temp Pulse Resp BP Pulse Ox 08/27/19 11:37 36.7 C 81 19 169/93 H 96 Date Exam was Performed: 08/27/19 Time Exam was Performed: 16:14 - My Orders Last 24 Hours: My Active Orders 08/27/19 15:09 Admission Status [Patient Status] [ADT] Stat - Assessment/Plan Last 24 Hours: My Active Orders 08/27/19 15:09 Admission Status [Patient Status] [ADT] Stat
--- NOTE | 2019-08-27 14:56 | MR ---
MR angiogram of brain Technique: MR angiogram sequences were obtained centered to the pit[place] point of [place]. Multiple MIP images were obtained. Findings: Normal flow is seen within the distal internal carotid arteries and distal vertebral arteries into the basilar artery. Posterior right cerebral artery is supplied by the basilar artery. Left posterior cerebral artery is supplied from the posterior communicating artery from the left anterior circulation. Middle cerebral arteries and anterior cerebral arteries appear to be patent. No discrete stenosis or occlusion is appreciated. Impression: 1. Normal variant of left posterior cerebral artery being supplied from the left anterior circulation via a patent posterior communicating artery. 2. No focal stenosis or occlusion is seen within the main intracranial arteries. Diagnostic code #1 Study was dictated in [place] Standard Time
--- NOTE | 2019-08-27 14:56 | MR ---
MRI brain Technique: T1 sagittal and coronal; T1, T2, FLAIR and diffusion axial Comparison: No prior intracranial imaging is available. Findings: Increased signal is seen within the left cerebellar hemisphere, multiple locations within the periventricular and subcortical white matter located supratentorially. Multiple small diffusion abnormalities are seen within the left cerebellar hemisphere and scattered within the subcortical and periventricular white matter on the left side. No larger areas of abnormal diffusion are seen. Ventricles along with basal cisterns and sulci over the convexities are within normal limits for the patient's age. Impression: 1. Multiple diffusion abnormalities within the left brain involving both anterior and posterior circulation which suggests an embolic etiology for the findings. These multiple diffusion abnormalities are compatible with multiple small infarcts which appear nonreversible as they are increased in signal on the FLAIR sequence. 2. Other areas of increased signal within the periventricular white matter is compatible with small vessel ischemic demyelination change. Diagnostic code #3 Study was dictated in [place] Standard Time
--- NOTE | 2019-08-27 15:44 | PCM.HP.2 ---
H&P History of Present Illness - General Date of Service: 08/27/19 Admit Problem/Dx: Admission Diagnosis/Problem Admission Diagnosis/Problem Stroke-like symptoms - History of Present Illness Initial Comments - Free Text/Narative: The patient is a 89 year old male with PMH of HTN, dementia, and BPH who presented to the ER with right sided upper and lower extremity weakness. Daughter reports last know normal was around 630 PM last night when they had dinner. She called him this morning several times and when he didn't answer she went to his house (around 10 am). At his house she noticed right sided weakness but no facial droop or slurred speech. No hx of stroke, IL, or Afib. Denies fever/chills, chest pain, shortness of breath, abdominal pain, nausea/ vomiting, constipation/diarrhea, lower extremity edema. He does follow with Dr. Gavin for dementia. He lives on his own. In the ER, lab work did not show a leukocytosis, he does have a chronic anemia and is at baseline. He also has CKD and is at baseline. Troponin was negative. Head Ct was negative for acute changes but did show age related changes. CXR showed no acute cardiopulmonary process. Brain MRI showed multiple diffusion abnormalities in the left brain, anterior/posterior circulation as well as evidence of small vessel ischemic demyelination change. MRI brain with MRA showed no acute findings. EKG showed NSR, no ST changes. PCP- Chandrika Neurologist- Leslye - Related Data Allergies/Adverse Reactions: Allergies Allergy/AdvReac Type Severity Reaction Status Date / Time bupropion [From Wellbutrin] Allergy Other Verified 08/27/19 11:35 citalopram Allergy Other Verified 08/27/19 11:35 Home Medications: Home Meds Tamsulosin [Flomax] 0.4 mg PO DAILY 11/16/14 [History] Cod Liver Oil 1 tab PO DAILY 09/13/16 [History] Losartan [Cozaar] 12.5 mg PO DAILY 09/13/16 [History] Multivitamin [Multivitamins] 1 cap PO DAILY 09/13/16 [History] hydroCHLOROthiazide [Hydrochlorothiazide] 12.5 mg PO DAILY 07/21/18 [History] Aspirin [Adult Low Dose Aspirin EC] 81 mg PO DAILY 08/27/19 [History] Past Medical History HEENT History: Reports: Impaired Vision, Other (See Below) Other HEENT History: wears glasses Cardiovascular History: Reports: Hypertension Respiratory History: Reports: None Gastrointestinal History: Reports: None Genitourinary History: Reports: Chronic Renal Insuffiency Musculoskeletal History: Reports: None Neurological History: Reports: Other (See Below) Other Neuro History: memory loss, pt describes as "short term memory loss" Psychiatric History: Reports: Anxiety, Depression Other Psychiatric History: confusion Endocrine/Metabolic History: Reports: None Hematologic History: Reports: Anemia Immunologic History: Reports: None Oncologic (Cancer) History: Reports: None Dermatologic History: Reports: None - Infectious Disease History Infectious Disease History: Reports: None Other Infectious Disease History: tuberculosis - Past Surgical History HEENT Surgical History: Reports: None Cardiovascular Surgical History: Reports: None Neurological Surgical History: Reports: None Social & Family History - Family History Family Medical History: Noncontributory - Tobacco Use Smoking Status *Q: Unknown Ever Smoked - Caffeine Use Caffeine Use: Reports: None Caffeine Use Comment: 5/day - Recreational Drug Use Recreational Drug Use: No H&P Review of Systems - Review of Systems: Review Of Systems: See Below General: Reports: No Symptoms HEENT: Reports: No Symptoms Pulmonary: Reports: No Symptoms Cardiovascular: Reports: No Symptoms Gastrointestinal: Reports: No Symptoms Genitourinary: Reports: No Symptoms Musculoskeletal: Reports: No Symptoms Skin: Reports: No Symptoms Psychiatric: Reports: No Symptoms Neurological: Reports: Weakness Hematologic/Lymphatic: Reports: No Symptoms Immunologic: Reports: No Symptoms Exam - Exam Exam: See Below - Vital Signs Vital Signs: Last Vital Signs Temp 98.0 F 08/27/19 11:37 Pulse 81 08/27/19 11:37 Resp 19 08/27/19 11:37 BP 169/93 H 08/27/19 11:37 Pulse Ox 96 08/27/19 11:37 Weight: 72.575 kg - Exam General: Alert, Cooperative HEENT: Conjunctiva Clear, EOMI, Mucosa Moist & [place], Posterior Pharynx Clear, Pupils Equal, Pupils Reactive Neck: Supple Lungs: Clear to Auscultation, Normal Respiratory Effort Cardiovascular: Regular Rate, Regular Rhythm GI/Abdominal Exam: Normal Bowel Sounds, Soft, Non-Tender, No Distention Extremities: No Pedal Edema Neurological: Cranial Nerves Intact. No: Strength Equal Bilateral (decreased strength right UE/LE) Neuro Extensive - Mental Status: Alert Neuro Extensive - Motor, Sensory, Reflexes: CN II-XII Intact. No: Tongue Deviation (L), Tongue Deviation (R), Dysarthria, Facial palsy (L), Facial Palsy (R), Abnormal Finger to Nose Psychiatric: Alert, Normal Affect, Normal Mood - Patient Data Lab Results Last 24 hrs: Laboratory Results - last 24 hr 08/27/19 08/27/19 08/27/19 Range/Units 12:04 12:04 12:04 WBC 6.41 (4.0-11.0) K/uL RBC 3.80 L (4.50-5.90) M/uL Hgb 11.9 L (13.0-17.0) g/dL Hct 35.9 L (38.0-50.0) % MCV 94.5 (80.0-98.0) fL MCH 31.3 (27.0-32.0) pg MCHC 33.1 (31.0-37.0) g/dL RDW Std Deviation 46.3 (28.0-62.0) fl RDW Coeff of Eugenia 14 (11.0-15.0) % Plt Count 112 L (150-400) K/uL MPV 10.90 (7.40-12.00) fL Neut % (Auto) 65.4 (48.0-80.0) % Lymph % (Auto) 17.9 (16.0-40.0) % [place] % (Auto) 11.1 (0.0-15.0) % Eos % (Auto) 5.3 (0.0-7.0) % Baso % (Auto) 0.3 (0.0-1.5) % Neut # (Auto) 4.2 (1.4-5.7) K/uL Lymph # (Auto) 1.2 (0.6-2.4) K/uL [place] # (Auto) 0.7 (0.0-0.8) K/uL Eos # (Auto) 0.3 (0.0-0.7) K/uL Baso # (Auto) 0.0 (0.0-0.1) K/uL Nucleated RBC % 0.0 /100WBC Nucleated RBCs # 0 K/uL INR 1.00 Sodium 144 (136-148) mmol/L Potassium 4.2 (3.5-5.1) mmol/L Chloride 109 H (98-107) mmol/L Carbon Dioxide 22.1 (21.0-32.0) mmol/L BUN 42 H (7.0-18.0) mg/dL Creatinine 1.9 H (0.8-1.3) mg/dL Est Cr Clr Drug Dosing 28.12 mL/min Estimated GFR (MDRD) 33.7 ml/min Glucose 104 (74-106) mg/dL Calcium 8.6 (8.5-10.1) mg/dL Total Bilirubin 0.5 (0.2-1.0) mg/dL AST 17 (15-37) IU/L ALT 17 (14-63) IU/L Alkaline Phosphatase 58 (46-116) U/L Troponin I < 0.050 (0.000-0.056) ng/mL Total Protein 6.3 L (6.4-8.2) g/dL Albumin 3.5 (3.4-5.0) g/dL Globulin 2.8 (2.6-4.0) g/dL Albumin/Globulin Ratio 1.2 (0.9-1.6) Result Diagrams: 08/27/19 12:04 08/27/19 12:04 Sepsis Event Note - Evaluation Sepsis Screening Result: No Definite Risk - Focused Exam Vital Signs: Vital Signs Temp Pulse Resp BP Pulse Ox 08/27/19 11:37 98.0 F 81 19 169/93 H 96 Date Exam was Performed: 08/27/19 Time Exam was Performed: 15:58 Problem List Initiated/Reviewed/Updated: Yes Orders Last 24hrs: Active Orders 24 hr Category Date Time Status Admission Status [Patient Status] [ADT] Stat ADT 08/27/19 15:09 Active Assessment/Plan Comment:: 1. Admit to inpatient 2. Code status- full 3. Vitals per routine 4. I/Os per routine 5. DVT prophylaxis with Heparin 6. Diet- heart healthy 7. CVA with right sided weakness- will obtain US carotids and echo. Will monitor on telemetry. Will obtain lipid panel and start on statin tomorrow. Consult PT/OT. May eat if he passes nursing bedside swallow. Will allow for permissive HTN. 8. CKD- stable, continue to monitor 9. HTN- hold BP meds to allow for permissive HTN.
[2019-08-27] MEDS ORDERED: Acetaminophen 325 MG Tab PO PRN (16:12)
[2019-08-27] MEDS ORDERED: Ondansetron 4 MG/2 ML SDV IVPUSH PRN (16:12)
[2019-08-27] MEDS: Heparin Sodium 5,000 Units/ML Vial SUBCUT SCH (17:29)
--- NOTE | 2019-08-28 00:57 | CT ---
INDICATION: Stroke symptoms. Stroke protocol TECHNIQUE: CT head without contrast. COMPARISON: Prior head CT and MRI from the same date FINDINGS: The ventricles and sulci are stable. There is no mass effect or midline shift. White-matter hypodensities are again seen, suggestive of chronic small vessel ischemic changes. 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 A small ill-defined area of mildly decreased attenuation in the left occipital lobe on image 28 of series 201 is probably related to one of the acute infarcts seen on the recent MRI. The other acute infarcts seen on the recent MRI are not well delineated on the current examination. There is no evidence of an acute intracranial hemorrhage. No acute calvarial fracture is seen. The visualized paranasal sinuses and mastoid air cells are clear. The visualized orbits are stable. IMPRESSION: A low attenuation focus in the left occipital lobe is probably related to one of the acute infarct seen on the recent MRI. The other acute infarcts seen on the recent MRI are not well delineated on the current study. No evidence of an acute intracranial hemorrhage. The findings were communicated to Dr. Sousa on 08/28/2019 at 12:54 a.m.. Dictated by Rohit Maurice MD @ 08/28/2019 12:55:19 AM Please note that all CT scans at this facility use dose modulation, iterative reconstruction, and/or weight-based dosing when appropriate to reduce radiation dose to as low as reasonably achievable. Dictated by: Rohit Maurice MD @ 08/28/2019 00:55:26 (Electronically Signed)
--- NOTE | 2019-08-28 01:21 | PCM.SN ---
- Free Text/Narrative Note: Nurses reported a decrease in weakness and speech tonight. On my exam right sided weakness is similar to earlier today. Nurses report improvement of weakness after CT scan. Repeat CT head shows no change infarcts compared to MRI brain.
[2019-08-28] MEDS: Heparin Sodium 5,000 Units/ML Vial SUBCUT SCH ×2 (05:22→16:27)
[2019-08-28] MEDS ORDERED: COD LIVER OIL PO SCH (09:00)
[2019-08-28] MEDS: Aspirin 81 MG Tab.EC PO SCH (09:46)
--- NOTE | 2019-08-28 11:00 | US ---
Carotid ultrasound: Duplex and color flow imaging was obtained of the carotid arteries. Comparison: No prior carotid imaging. Soft plaque noted within the left carotid bulb. Right side: CCA has a peak systolic velocity of 0.65 m/sec. ICA has a peak systolic velocity of 0.78 m/sec and peak end-diastolic velocity of 0.31 m/sec. ECA has a peak systolic velocity of 0.92 m/sec. Vertebral artery has a peak systolic velocity of 0.45 m/sec. ICA/CCA ratio is 1.19. Left side: CCA has a peak systolic velocity of 0.90 m/sec. ICA has a peak systolic velocity of 0.71 m/sec and peak end-diastolic velocity of 0.29 m/sec. ECA has a peak systolic velocity of 0.83 m/sec. Vertebral artery has a peak systolic velocity of 0.36 m/sec. ICA/CCA ratio is 0.83. Impression: 1. Soft plaque within the left carotid bulb. 2. Velocity measurements correlate to stenosis within both internal carotid arteries in the range 1-49%. 3. High resistant waveforms noted within both vertebral arteries but velocity measurements are normal. Antegrade flow is noted. Diagnostic code #3 This report was dictated in [place] Standard Time
[2019-08-28 11:06] LABS: CARBON DIOXIDE,CO2 24.6 mmol/L (21.0-32.0); HEMOGLOBIN A1C 5.9 % (4.5-6.2)
--- NOTE | 2019-08-28 12:32 | PCM.PN ---
- General Info Date of Service: 08/28/19 - Review of Systems Systems Review Comment:: patient has no complaints, - Patient Data Vitals - Most Recent: Last Vital Signs Temp 37.1 C 08/28/19 12:00 Pulse 76 08/28/19 12:00 Resp 16 08/28/19 12:00 BP 152/75 H 08/28/19 12:00 Pulse Ox 98 08/28/19 12:00 Weight - Most Recent: 71 kg I&O - Last 24 Hours: Intake & Output 08/27/19 08/28/19 08/28/19 22:59 06:59 14:59 Intake Total 500 Output Total 100 Balance 400 Lab Results Last 24 Hours: Laboratory Results - last 24 hr 08/27/19 08/27/19 08/28/19 Range/Units 12:04 12:04 00:01 WBC (4.0-11.0) K/uL RBC (4.50-5.90) M/uL Hgb (13.0-17.0) g/dL Hct (38.0-50.0) % MCV (80.0-98.0) fL MCH (27.0-32.0) pg MCHC (31.0-37.0) g/dL RDW Std Deviation (28.0-62.0) fl RDW Coeff of Eugenia (11.0-15.0) % Plt Count (150-400) K/uL MPV (7.40-12.00) fL Neut % (Auto) (48.0-80.0) % Lymph % (Auto) (16.0-40.0) % [place] % (Auto) (0.0-15.0) % Eos % (Auto) (0.0-7.0) % Baso % (Auto) (0.0-1.5) % Neut # (Auto) (1.4-5.7) K/uL Lymph # (Auto) (0.6-2.4) K/uL [place] # (Auto) (0.0-0.8) K/uL Eos # (Auto) (0.0-0.7) K/uL Baso # (Auto) (0.0-0.1) K/uL Nucleated RBC % /100WBC Nucleated RBCs # K/uL INR 1.00 Sodium 144 (136-148) mmol/L Potassium 4.2 (3.5-5.1) mmol/L Chloride 109 H (98-107) mmol/L Carbon Dioxide 22.1 (21.0-32.0) mmol/L BUN 42 H (7.0-18.0) mg/dL Creatinine 1.9 H (0.8-1.3) mg/dL Est Cr Clr Drug Dosing 28.12 mL/min Estimated GFR (MDRD) 33.7 ml/min Glucose 104 (74-106) mg/dL POC Glucose 103 (60-110) mg/dL Hemoglobin A1c (4.5-6.2) % Calcium 8.6 (8.5-10.1) mg/dL Total Bilirubin 0.5 (0.2-1.0) mg/dL AST 17 (15-37) IU/L ALT 17 (14-63) IU/L Alkaline Phosphatase 58 (46-116) U/L Troponin I < 0.050 (0.000-0.056) ng/mL Total Protein 6.3 L (6.4-8.2) g/dL Albumin 3.5 (3.4-5.0) g/dL Globulin 2.8 (2.6-4.0) g/dL Albumin/Globulin Ratio 1.2 (0.9-1.6) Triglycerides (0-200) mg/dL Cholesterol (50-200) mg/dL LDL Cholesterol, Calc (60-180) mg/dL VLDL Cholesterol (5-55) mg/dL HDL Cholesterol (40-60) mg/dL Cholesterol/HDL Ratio (3.3-6.0) 08/28/19 08/28/19 08/28/19 Range/Units 10:13 10:13 10:13 WBC 6.11 (4.0-11.0) K/uL RBC 3.99 L (4.50-5.90) M/uL Hgb 12.4 L (13.0-17.0) g/dL Hct 37.6 L (38.0-50.0) % MCV 94.2 (80.0-98.0) fL MCH 31.1 (27.0-32.0) pg MCHC 33.0 (31.0-37.0) g/dL RDW Std Deviation 46.6 (28.0-62.0) fl RDW Coeff of Eugenia 14 (11.0-15.0) % Plt Count 135 L (150-400) K/uL MPV 10.20 (7.40-12.00) fL Neut % (Auto) 67.2 (48.0-80.0) % Lymph % (Auto) 16.0 (16.0-40.0) % [place] % (Auto) 13.6 (0.0-15.0) % Eos % (Auto) 2.9 (0.0-7.0) % Baso % (Auto) 0.3 (0.0-1.5) % Neut # (Auto) 4.1 (1.4-5.7) K/uL Lymph # (Auto) 1.0 (0.6-2.4) K/uL [place] # (Auto) 0.8 (0.0-0.8) K/uL Eos # (Auto) 0.2 (0.0-0.7) K/uL Baso # (Auto) 0.0 (0.0-0.1) K/uL Nucleated RBC % 0.0 /100WBC Nucleated RBCs # 0 K/uL INR Sodium 140 (136-148) mmol/L Potassium 4.0 (3.5-5.1) mmol/L Chloride 105 (98-107) mmol/L Carbon Dioxide 24.6 (21.0-32.0) mmol/L BUN 40 H (7.0-18.0) mg/dL Creatinine 2.1 H (0.8-1.3) mg/dL Est Cr Clr Drug Dosing 24.89 mL/min Estimated GFR (MDRD) 30.0 ml/min Glucose 110 H (74-106) mg/dL POC Glucose (60-110) mg/dL Hemoglobin A1c 5.9 (4.5-6.2) % Calcium 8.8 (8.5-10.1) mg/dL Total Bilirubin (0.2-1.0) mg/dL AST (15-37) IU/L ALT (14-63) IU/L Alkaline Phosphatase (46-116) U/L Troponin I (0.000-0.056) ng/mL Total Protein (6.4-8.2) g/dL Albumin (3.4-5.0) g/dL Globulin (2.6-4.0) g/dL Albumin/Globulin Ratio (0.9-1.6) Triglycerides 93 (0-200) mg/dL Cholesterol 148 (50-200) mg/dL LDL Cholesterol, Calc 93 (60-180) mg/dL VLDL Cholesterol 18 (5-55) mg/dL HDL Cholesterol 36 L (40-60) mg/dL Cholesterol/HDL Ratio 4.1 (3.3-6.0) Med Orders - Current: Current Medications Acetaminophen (Tylenol) 650 mg PO Q4H PRN PRN Reason: Pain/Fever Aspirin (Halfprin) 81 mg PO DAILY [facility] Last Admin: 08/28/19 09:46 Dose: 81 mg Atorvastatin Calcium (Lipitor) 80 mg PO BEDTIME TABATHA Heparin Sodium (Porcine) (Heparin Sodium) 5,000 units SUBCUT Q12H [facility] Last Admin: 08/28/19 05:22 Dose: 5,000 units Ondansetron HCl (Zofran) 4 mg IVPUSH Q4H PRN PRN Reason: Nausea/Vomiting Discontinued Medications Non-Formulary Medication (Cod Liver Oil [Cod Liver Oil]) 1 tab PO DAILY TABATHA - Exam General: Oriented (to town and person, not to year), Cooperative Neck: Supple Lungs: Clear to Auscultation, Normal Respiratory Effort Cardiovascular: Regular Rate, Regular Rhythm GI/Abdominal Exam: Soft, Non-Tender, No Distention Extremities: Non-Tender, No Pedal Edema Skin: Warm, Dry, Intact Neurological: No New Focal Deficit. No: Strength Equal Bilateral (right hand weakness, unable to name objects but talking in complete sentences) Sepsis Event Note - Evaluation Sepsis Screening Result: No Definite Risk - Focused Exam Vital Signs: Vital Signs Temp Pulse Resp BP Pulse Ox 08/28/19 12:00 37.1 C 76 16 152/75 H 98 08/28/19 07:51 36.9 C 89 16 151/82 H 93 L Date Exam was Performed: 08/28/19 Time Exam was Performed: 12:29 - Problem List Review Problem List Initiated/Reviewed/Updated: Yes - My Orders Last 24 Hours: My Active Orders 08/28/19 10:04 Consult to Speech Language Pathology [[employer] Evaluation and Treatment] [CONS] Routine - Plan Plan:: 89 yo male admitted with CVA with right sided weakness and word finding difficulties. Will continue to monitor on telemetry. Awaiting reports from echocardiogram and carotid dopplars. PT/OT/Speech consulted.
[2019-08-28] MEDS: atorvaSTATin 40 MG Tab PO SCH (20:00)
[2019-08-29] MEDS: Heparin Sodium 5,000 Units/ML Vial SUBCUT SCH ×2 (04:06→16:06)
[2019-08-29 06:02] LABS: CARBON DIOXIDE,CO2 23.2 mmol/L (21.0-32.0)
--- NOTE | 2019-08-29 09:17 | PCM.PN ---
- General Info Date of Service: 08/29/19 Subjective Update: Patient states he wants to go home. No change in hand function. No worsening stroke symptoms, vitals stable. Daughter filling out [employer] paperwork. - Review of Systems General: Reports: No Symptoms HEENT: Reports: No Symptoms Pulmonary: Reports: No Symptoms Cardiovascular: Reports: No Symptoms Gastrointestinal: Reports: No Symptoms Genitourinary: Reports: No Symptoms Musculoskeletal: Reports: No Symptoms Skin: Reports: No Symptoms Neurological: Reports: Weakness (right hand weakness) Psychiatric: Reports: Confusion - Patient Data Vitals - Most Recent: Last Vital Signs Temp 96.8 F 08/29/19 07:30 Pulse 96 08/29/19 07:30 Resp 17 08/29/19 07:30 BP 157/83 H 08/29/19 07:30 Pulse Ox 95 08/29/19 07:30 Weight - Most Recent: 71 kg I&O - Last 24 Hours: Intake & Output 08/28/19 08/29/19 08/29/19 22:59 06:59 14:59 Intake Total 900 530 Output Total 200 Balance 900 330 Lab Results Last 24 Hours: Laboratory Results - last 24 hr 08/28/19 08/28/19 08/28/19 Range/Units 10:13 10:13 10:13 WBC 6.11 (4.0-11.0) K/uL RBC 3.99 L (4.50-5.90) M/uL Hgb 12.4 L (13.0-17.0) g/dL Hct 37.6 L (38.0-50.0) % MCV 94.2 (80.0-98.0) fL MCH 31.1 (27.0-32.0) pg MCHC 33.0 (31.0-37.0) g/dL RDW Std Deviation 46.6 (28.0-62.0) fl RDW Coeff of [place] 14 (11.0-15.0) % Plt Count 135 L (150-400) K/uL MPV 10.20 (7.40-12.00) fL Neut % (Auto) 67.2 (48.0-80.0) % Lymph % (Auto) 16.0 (16.0-40.0) % [place] % (Auto) 13.6 (0.0-15.0) % Eos % (Auto) 2.9 (0.0-7.0) % Baso % (Auto) 0.3 (0.0-1.5) % Neut # (Auto) 4.1 (1.4-5.7) K/uL Lymph # (Auto) 1.0 (0.6-2.4) K/uL [place] # (Auto) 0.8 (0.0-0.8) K/uL Eos # (Auto) 0.2 (0.0-0.7) K/uL Baso # (Auto) 0.0 (0.0-0.1) K/uL Nucleated RBC % 0.0 /100WBC Nucleated RBCs # 0 K/uL Sodium 140 (136-148) mmol/L Potassium 4.0 (3.5-5.1) mmol/L Chloride 105 (98-107) mmol/L Carbon Dioxide 24.6 (21.0-32.0) mmol/L BUN 40 H (7.0-18.0) mg/dL Creatinine 2.1 H (0.8-1.3) mg/dL Est Cr Clr Drug Dosing 24.89 mL/min Estimated GFR (MDRD) 30.0 ml/min Glucose 110 H (74-106) mg/dL Hemoglobin A1c 5.9 (4.5-6.2) % Calcium 8.8 (8.5-10.1) mg/dL Triglycerides 93 (0-200) mg/dL Cholesterol 148 (50-200) mg/dL LDL Cholesterol, Calc 93 (60-180) mg/dL VLDL Cholesterol 18 (5-55) mg/dL HDL Cholesterol 36 L (40-60) mg/dL Cholesterol/HDL Ratio 4.1 (3.3-6.0) 08/29/19 08/29/19 Range/Units 05:15 05:15 WBC 6.53 (4.0-11.0) K/uL RBC 3.83 L (4.50-5.90) M/uL Hgb 11.9 L (13.0-17.0) g/dL Hct 36.1 L (38.0-50.0) % MCV 94.3 (80.0-98.0) fL MCH 31.1 (27.0-32.0) pg MCHC 33.0 (31.0-37.0) g/dL RDW Std Deviation 46.6 (28.0-62.0) fl RDW Coeff of Eugenia 14 (11.0-15.0) % Plt Count 118 L (150-400) K/uL MPV 10.80 (7.40-12.00) fL Neut % (Auto) 51.7 (48.0-80.0) % Lymph % (Auto) 26.2 (16.0-40.0) % [place] % (Auto) 13.5 (0.0-15.0) % Eos % (Auto) 8.4 H (0.0-7.0) % Baso % (Auto) 0.2 (0.0-1.5) % Neut # (Auto) 3.4 (1.4-5.7) K/uL Lymph # (Auto) 1.7 (0.6-2.4) K/uL [place] # (Auto) 0.9 H (0.0-0.8) K/uL Eos # (Auto) 0.6 (0.0-0.7) K/uL Baso # (Auto) 0.0 (0.0-0.1) K/uL Nucleated RBC % 0.0 /100WBC Nucleated RBCs # 0 K/uL Sodium 141 (136-148) mmol/L Potassium 4.0 (3.5-5.1) mmol/L Chloride 107 (98-107) mmol/L Carbon Dioxide 23.2 (21.0-32.0) mmol/L BUN 44 H (7.0-18.0) mg/dL Creatinine 2.0 H (0.8-1.3) mg/dL Est Cr Clr Drug Dosing 26.13 mL/min Estimated GFR (MDRD) 31.8 ml/min Glucose 103 (74-106) mg/dL Hemoglobin A1c (4.5-6.2) % Calcium 8.8 (8.5-10.1) mg/dL Triglycerides (0-200) mg/dL Cholesterol (50-200) mg/dL LDL Cholesterol, Calc (60-180) mg/dL VLDL Cholesterol (5-55) mg/dL HDL Cholesterol (40-60) mg/dL Cholesterol/HDL Ratio (3.3-6.0) Med Orders - Current: Current Medications Acetaminophen (Tylenol) 650 mg PO Q4H PRN PRN Reason: Pain/Fever Aspirin (Halfprin) 81 mg PO DAILY [facility] Last Admin: 08/28/19 09:46 Dose: 81 mg Atorvastatin Calcium (Lipitor) 80 mg PO BEDTIME [facility] Last Admin: 08/28/19 20:00 Dose: 80 mg Heparin Sodium (Porcine) (Heparin Sodium) 5,000 units SUBCUT Q12H [facility] Last Admin: 08/29/19 04:06 Dose: 5,000 units Ondansetron HCl (Zofran) 4 mg IVPUSH Q4H PRN PRN Reason: Nausea/Vomiting Discontinued Medications Non-Formulary Medication (Cod Liver Oil [Cod Liver Oil]) 1 tab PO DAILY TABATHA - Exam General: Alert, Cooperative Lungs: Clear to Auscultation, Normal Respiratory Effort Cardiovascular: Regular Rate, Regular Rhythm GI/Abdominal Exam: Normal Bowel Sounds, Soft, Non-Tender, No Distention Extremities: No Pedal Edema Skin: Warm, Dry, Intact Neurological: Normal Speech, Other (right hand weakness) Psy/Mental Status: Alert, Normal Affect, Normal Mood Sepsis Event Note - Evaluation Sepsis Screening Result: No Definite Risk - Focused Exam Vital Signs: Vital Signs Temp Pulse Resp BP Pulse Ox 08/29/19 07:30 96.8 F 96 17 157/83 H 95 08/29/19 04:31 97.2 F 73 18 122/67 98 08/29/19 00:12 97.4 F 72 17 160/77 H 93 L Date Exam was Performed: 08/29/19 Time Exam was Performed: 11:12 - Problem List Review Problem List Initiated/Reviewed/Updated: Yes - My Orders Last 24 Hours: My Active Orders 08/28/19 09:00 Aspirin [Halfprin] 81 mg PO DAILY 08/28/19 16:12 Echo Comp wo Cont [US] Stat - Plan Plan:: 1. CVA with right hand weakness and word finding difficulties- continue ASA and statin. US carotid did not show any significant stenosis, echo pending. PT evaluated and didn't see need for exterminator helper termite PT needs. OT recommended [facility] placement for further therapy needs. ST following and working on word finding difficulties. Continue to monitor on telemetry. [employer] application started. 2. CKD- stable, continue to monitor
[2019-08-29] MEDS: Aspirin 81 MG Tab.EC PO SCH (10:13)
[2019-08-29] MEDS: atorvaSTATin 40 MG Tab PO SCH (20:15)
[2019-08-30] MEDS: Heparin Sodium 5,000 Units/ML Vial SUBCUT SCH (04:18)
[2019-08-30 06:41] LABS: POTASSIUM,K 3.9 mmol/L (3.5-5.1)
--- NOTE | 2019-08-30 09:01 | PCM.DCSUM1 ---
<Violetta Leija - Last Filed: 08/30/19 10:42> Discharge Summary - Hospital Course HPI Initial Comments: Admission Date:08/27/19 Discharge Date: 08/30/19 Admission Diagnosis: 1. CVA with right sided weakness 2. CKD 3. HTN Discharge Diagnosis: 1. CVA with right sided weakness and word finding difficulties 2. CKD-stable 3. HTN Procedures: None Consults: None Hospital Course: The patient is a 89 year old male with PMH of HTN, dementia, and BPH who presented to the ER with right sided upper and lower extremity weakness. In the ER, lab work did not show a leukocytosis, he does have a chronic anemia and is at baseline. He also has CKD and is at baseline. Troponin was negative. Head Ct was negative for acute changes but did show age related changes. CXR showed no acute cardiopulmonary process. Brain MRI showed multiple diffusion abnormalities in the left brain, anterior/posterior circulation as well as evidence of small vessel ischemic demyelination change. MRI brain with MRA showed no acute findings. EKG showed NSR, no ST changes. Admitted as inpatient for acute stroke. Further workup included US carotids which showed soft plaque left carotid bulb and bilateral ICA 1-49% stenosis. Echo results were pending at time of discharge. The night of his admission, nursing felt like his deficit had worsened, repeat CT was negative. Patient was evaluated by PT/OT/ST. OT recommended long term placement for rehab. Patient was started on statin and ASA. Initially blood pressure meds were held for permissive hypertension. He was monitored on telemetry without any significant events. His CKD was monitored without any significant changes. By day of discharge patient was ready to leave hospital. Disposition: [facility] Discharge Condition: vitals stable, tolerating oral diet, ambulating without difficulty, symptom improvement Discharge Instructions: regular diet as tolerated, activity as tolerated, take medications as prescribed. Symptoms to report to physician include fever/chills , chest pain, shortness of breath, abdominal pain, facial droop, slurred speech , weakness, erythema, drainage/discharge, or not improving as expected. Discharge Medications: Tamsulosin [Flomax] 0.4 mg PO DAILY Cod Liver Oil 1 tab PO DAILY Losartan [Cozaar] 12.5 mg PO DAILY Multivitamin [Multivitamins] 1 cap PO DAILY hydroCHLOROthiazide [Hydrochlorothiazide] 12.5 mg PO DAILY Aspirin [Adult Low Dose Aspirin EC] 81 mg PO DAILY atorvaSTATin [Lipitor] 80 mg PO BEDTIME Follow-up: 1. Dr. Cobos at [facility] - Discharge Data Discharge Date: 08/30/19 Discharge Disposition: DC/Tfer to SNF 03 Condition: Stable - Referral to Home Health Primary Care Physician: Guillermo Cobos MD - Patient Summary/Data Consults: Consultations 08/27/19 16:12 OT Evaluation and Treatment [CONS] Routine PT Evaluation and Treatment [CONS] Routine 08/28/19 10:04 Consult to Speech Language Pathology [FINANCIAL AUDITOR Evaluation and Treatment] [CONS] Routine - Patient Instructions Diet: Heart Healthy Diet Activity: As Tolerated Activity, Other: Needs PT/OT/ST Showering/Bathing: May Shower Notify Provider of: Fever, Increased Pain, Swelling and Redness, Drainage, Nausea and/or Vomiting Other/Special Instructions: Additional symptoms include chest pain, shortness of breath, abdominal pain, slurred speech, facial droop, weakness. - Discharge Plan *PRESCRIPTION DRUG MONITORING PROGRAM REVIEWED*: No *COPY OF PRESCRIPTION DRUG MONITORING REPORT IN PATIENT AVERY: No Prescriptions/Med Rec: atorvaSTATin [Lipitor] 80 mg PO BEDTIME 7 Days #7 tablet Home Medications: Home Meds Tamsulosin [Flomax] 0.4 mg PO DAILY 11/16/14 [History] Cod Liver Oil 1 tab PO DAILY 09/13/16 [History] Losartan [Cozaar] 12.5 mg PO DAILY 09/13/16 [History] Multivitamin [Multivitamins] 1 cap PO DAILY 09/13/16 [History] hydroCHLOROthiazide [Hydrochlorothiazide] 12.5 mg PO DAILY 07/21/18 [History] Aspirin [Adult Low Dose Aspirin EC] 81 mg PO DAILY 08/27/19 [History] atorvaSTATin [Lipitor] 80 mg PO BEDTIME 7 Days #7 tablet 08/30/19 [Rx] Referrals: Gulilermo Cobos MD [Primary Care Provider] - 09/12/19 2:00 pm - Discharge Summary/Plan Comment DC Time >30 min.: No - Patient Data Vitals - Most Recent: Last Vital Signs Temp 98 F 08/30/19 07:33 Pulse 72 08/30/19 07:33 Resp 16 08/30/19 07:33 BP 153/78 H 08/30/19 07:33 Pulse Ox 94 L 08/30/19 07:33 Weight - Most Recent: 71 kg I&O - Last 24 hours: Intake & Output 08/29/19 08/30/19 08/30/19 22:59 06:59 14:59 Intake Total 360 450 Output Total 360 Balance 360 90 Lab Results - Last 24 hrs: Laboratory Results - last 24 hr 08/30/19 08/30/19 Range/Units 06:00 06:00 WBC 5.41 (4.0-11.0) K/uL RBC 3.70 L (4.50-5.90) M/uL Hgb 11.5 L (13.0-17.0) g/dL Hct 34.8 L (38.0-50.0) % MCV 94.1 (80.0-98.0) fL MCH 31.1 (27.0-32.0) pg MCHC 33.0 (31.0-37.0) g/dL RDW Std Deviation 46.5 (28.0-62.0) fl RDW Coeff of Eugenia 14 (11.0-15.0) % Plt Count 128 L (150-400) K/uL MPV 10.60 (7.40-12.00) fL Neut % (Auto) 56.9 (48.0-80.0) % Lymph % (Auto) 22.9 (16.0-40.0) % [place] % (Auto) 10.4 (0.0-15.0) % Eos % (Auto) 9.6 H (0.0-7.0) % Baso % (Auto) 0.2 (0.0-1.5) % Neut # (Auto) 3.1 (1.4-5.7) K/uL Lymph # (Auto) 1.2 (0.6-2.4) K/uL [place] # (Auto) 0.6 (0.0-0.8) K/uL Eos # (Auto) 0.5 (0.0-0.7) K/uL Baso # (Auto) 0.0 (0.0-0.1) K/uL Nucleated RBC % 0.0 /100WBC Nucleated RBCs # 0 K/uL Sodium 143 (136-148) mmol/L Potassium 3.9 (3.5-5.1) mmol/L Chloride 108 H (98-107) mmol/L Carbon Dioxide 23.0 (21.0-32.0) mmol/L BUN 41 H (7.0-18.0) mg/dL Creatinine 2.0 H (0.8-1.3) mg/dL Est Cr Clr Drug Dosing 26.13 mL/min Estimated GFR (MDRD) 31.8 ml/min Glucose 111 H (74-106) mg/dL Calcium 8.6 (8.5-10.1) mg/dL Med Orders - Current: Current Medications Acetaminophen (Tylenol) 650 mg PO Q4H PRN PRN Reason: Pain/Fever Last Admin: 08/29/19 11:17 Dose: 325 mg Aspirin (Halfprin) 81 mg PO DAILY [facility] Last Admin: 08/29/19 10:13 Dose: 81 mg Atorvastatin Calcium (Lipitor) 80 mg PO BEDTIME [facility] Last Admin: 08/29/19 20:15 Dose: 80 mg Heparin Sodium (Porcine) (Heparin Sodium) 5,000 units SUBCUT Q12H [facility] Last Admin: 08/30/19 04:18 Dose: 5,000 units Ondansetron HCl (Zofran) 4 mg IVPUSH Q4H PRN PRN Reason: Nausea/Vomiting Discontinued Medications Non-Formulary Medication (Cod Liver Oil [Cod Liver Oil]) 1 tab PO DAILY [facility] <Keny Sousa - Last Filed: 09/02/19 18:42> Discharge Summary - Referral to Home Health Primary Care Physician: Guillermo Cobos MD - Patient Summary/Data Consults: Consultations 08/27/19 16:12 OT Evaluation and Treatment [CONS] Routine PT Evaluation and Treatment [CONS] Routine 08/28/19 10:04 Consult to Speech Language Pathology [FINANCIAL AUDITOR Evaluation and Treatment] [CONS] Routine - Patient Data Vitals - Most Recent: Last Vital Signs Temp 37.1 C 08/30/19 12:00 Pulse 85 08/30/19 12:00 Resp 16 08/30/19 12:00 BP 134/84 08/30/19 12:00 Pulse Ox 95 08/30/19 12:00 Med Orders - Current: Current Medications Discontinued Medications Acetaminophen (Tylenol) 650 mg PO Q4H PRN PRN Reason: Pain/Fever Last Admin: 08/29/19 11:17 Dose: 325 mg Aspirin (Halfprin) 81 mg PO DAILY [facility] Last Admin: 08/30/19 09:17 Dose: 81 mg Atorvastatin Calcium (Lipitor) 80 mg PO BEDTIME [facility] Last Admin: 08/29/19 20:15 Dose: 80 mg Heparin Sodium (Porcine) (Heparin Sodium) 5,000 units SUBCUT Q12H [facility] Last Admin: 08/30/19 04:18 Dose: 5,000 units Non-Formulary Medication (Cod Liver Oil [Cod Liver Oil]) 1 tab PO DAILY [facility] Ondansetron HCl (Zofran) 4 mg IVPUSH Q4H PRN PRN Reason: Nausea/Vomiting - Free Text/Narrative Note: I have seen and evaluated the patient with the resident. I have discussed findings and treatment plan with the resident. I agree with the assessment and plan in the following note.
[2019-08-30] MEDS: Aspirin 81 MG Tab.EC PO SCH (09:17)
[2019-08-30 12:17] VITALS: BP 134/84; PULSE 85
--- NOTE | 2019-08-31 16:56 | ECHO ---
The echocardiogram report can be seen in this patient's EMR (Electronic Medical Record) in the REPORTS section. The echocardiogram report has also been scanned into PACS and can be seen there as well. [email or web address]
== END 2019-08-30 12:15 | DRG 65 ==
LOC: MW.ED 11:24 → INTOOBSV 15:25 → UNDOADMOB 15:25 → MW.MS 15:25 → OBSVTOIN 15:25 → MW.MS 16:05 → OBSVTOIN 16:18 → UNDODISIN 08-30 12:15
PROVIDERS: ADMIT Internal Medicine; ATTEND Internal Medicine
DX: I63.9 Cerebral infarction, unspecified (principal); G83.21 Monoplegia of upper limb affecting right dominant side; F03.90 Unspecified dementia, unspecified severity, without behavioral disturbance, psychotic disturbance, mood disturbance, and anxiety; G81.91 Hemiplegia, unspecified affecting right dominant side; H54.7 Unspecified visual loss; F41.9 Anxiety disorder, unspecified; F32.9 Major depressive disorder, single episode, unspecified; D64.9 Anemia, unspecified; I65.23 Occlusion and stenosis of bilateral carotid arteries; I12.9 Hypertensive chronic kidney disease with stage 1 through stage 4 chronic kidney disease, or unspecified chronic kidney disease; N18.9 Chronic kidney disease, unspecified; R29.706 NIHSS score 6; Z79.82 Long term (current) use of aspirin; Z79.899 Other long term (current) drug therapy
CPT/HCPCS: 36415; 70450; 70450-26; 70544; 70544-26; 70551; 70551-26; 71045; 71045-26; 80048; 80053; 80061; 82962; 83036; 84484; 85025; 85610; 92523-GN-52; 92610-GN; 93306; 93880; 93880-26; 97110-GO; 97161-GP; 97165-GO; 99285; 99285-25; A9270-GY; J1644

== ENCOUNTER 2019-10-26 18:41 | Inpatient (IN) | payer MEDICARE, BC, OTHER ==
[2019-10-26] MEDS ORDERED: Sodium Chloride 0.9% 2.5 ML Syringe FLUSH PRN ×2 (19:14)
[2019-10-26] MEDS ORDERED: Sodium Chloride 0.9% 10 ML Syringe FLUSH PRN (19:14)
--- NOTE | 2019-10-26 19:52 | EDM.PDOC ---
ED HPI GENERAL MEDICAL PROBLEM - General Chief Complaint: Fever Stated Complaint: COLD AND FEVER Time Seen by Provider: 10/26/19 19:03 Source of Information: Reports: Patient History Limitations: Reports: No Limitations - History of Present Illness INITIAL COMMENTS - FREE TEXT/NARRATIVE: 89 h/o stroke, DNR, Normal presure hydrocephalus, ?dementia, presenting to ED from [facility] for fever and cough. the patient is an unreliable historian. daughter supplemented the history. per daughter, she was called by dc admin because her father had a cough and developed a temperature of 102 in the afternoon of day to presentation to ED. he denied any symptoms (but is unreliable historian). - Related Data Allergies Allergy/AdvReac Type Severity Reaction Status Date / Time bupropion [From Wellbutrin] Allergy Other Verified 10/28/19 00:43 citalopram Allergy Other Verified 10/28/19 00:43 Home Meds: Home Meds RX: Tamsulosin [Flomax] 0.4 mg PO DAILY 11/16/14 [History] RX: Cod Liver Oil 1 tab PO DAILY 09/13/16 [History] RX: Losartan [Cozaar] 12.5 mg PO DAILY 09/13/16 [History] RX: Multivitamin [Multivitamins] 1 cap PO DAILY 09/13/16 [History] RX: hydroCHLOROthiazide [Hydrochlorothiazide] 12.5 mg PO DAILY 07/21/18 [History ] RX: Aspirin [Adult Low Dose Aspirin EC] 81 mg PO DAILY 08/27/19 [History] RX: atorvaSTATin [Lipitor] 20 mg PO BEDTIME 10/26/19 [History] Past Medical History HEENT History: Reports: Impaired Vision, Other (See Below) Other HEENT History: wears glasses Cardiovascular History: Reports: Hypertension Respiratory History: Reports: None Gastrointestinal History: Reports: None Genitourinary History: Reports: Chronic Renal Insuffiency Musculoskeletal History: Reports: None Neurological History: Reports: Other (See Below) Other Neuro History: Dementia Psychiatric History: Reports: Anxiety, Depression Other Psychiatric History: confusion Endocrine/Metabolic History: Reports: None Hematologic History: Reports: Anemia Immunologic History: Reports: None Oncologic (Cancer) History: Reports: None Dermatologic History: Reports: None - Infectious Disease History Infectious Disease History: Reports: Chicken Pox Other Infectious Disease History: tuberculosis - Past Surgical History HEENT Surgical History: Reports: Cataract Surgery Cardiovascular Surgical History: Reports: None Neurological Surgical History: Reports: None Social & Family History - Family History Family Medical History: Noncontributory - Tobacco Use Smoking Status *Q: Never Smoker - Caffeine Use Caffeine Use: Reports: Coffee Caffeine Use Comment: 5/day - Recreational Drug Use Recreational Drug Use: No ED ROS GENERAL - Review of Systems Review Of Systems: Unable To Obtain Reason Not Obtained: dementia ED EXAM, GENERAL - Physical Exam Exam: See Below Exam Limited By: No Limitations General Appearance: Alert, No Apparent Distress Nose: Normal Inspection Throat/Mouth: Normal Inspection Head: Atraumatic Neck: Normal Inspection, Supple Respiratory/Chest: No Respiratory Distress, Lungs Clear, Other (coughed during inspiration on lung exam ) Cardiovascular: Regular Rate, Rhythm, No Edema, No Gallop, No JVD, No Murmur, No Rub Peripheral Pulses: 3+: Radial (L), Radial (R) GI/Abdominal: Soft, Non-Tender Extremities: Normal Inspection Neurological: Alert, Confused, Other (at baseline confusion ) Skin Exam: Warm Course - Vital Signs Last Recorded V/S: Last Vital Signs Temp 99.4 F 10/28/19 12:00 Pulse 73 10/28/19 12:00 Resp 16 10/28/19 12:00 BP 133/70 10/28/19 12:00 Pulse Ox 94 L 10/28/19 12:00 - Orders/Labs/Meds Orders: Medication Orders Acetaminophen (Tylenol) 650 mg PO Q4H PRN PRN Reason: Pain (Mild 1-3)/fever Albuterol/Ipratropium (Duoneb 3.0-0.5 Mg/3 Ml) 3 ml NEB Q4HRRT PRN PRN Reason: Shortness Of Breath/wheezing Aspirin (Halfprin) 81 mg PO DAILY [facility] Last Admin: 10/28/19 08:33 Dose: 81 mg Admin: 10/27/19 10:16 Dose: 81 mg Atorvastatin Calcium (Lipitor) 20 mg PO BEDTIME [facility] Last Admin: 10/27/19 20:32 Dose: 20 mg Docusate Sodium (Colace) 100 mg PO BID PRN PRN Reason: Constipation Last Admin: 10/28/19 08:33 Dose: 100 mg Admin: 10/27/19 11:39 Dose: 100 mg Doxycycline Hyclate (Vibramycin) 100 mg PO Q12HR [facility] Last Admin: 10/28/19 08:36 Dose: 100 mg Admin: 10/27/19 20:32 Dose: 100 mg Admin: 10/27/19 10:18 Dose: 100 mg Guaifenesin (Robitussin) 200 mg PO Q4H PRN PRN Reason: Cough Last Admin: 10/28/19 08:28 Dose: 200 mg Admin: 10/27/19 20:34 Dose: 200 mg Admin: 10/27/19 13:48 Dose: 200 mg Heparin Sodium (Porcine) (Heparin Sodium) 5,000 units SUBCUT Q8H [facility] Last Admin: 10/28/19 10:15 Dose: 5,000 units Admin: 10/28/19 01:43 Dose: 5,000 units Admin: 10/27/19 18:06 Dose: 5,000 units Admin: 10/27/19 10:29 Dose: 5,000 units Admin: 10/27/19 08:28 Dose: Hydrochlorothiazide (Hydrochlorothiazide) 12.5 mg PO DAILY [facility] Last Admin: 10/28/19 08:36 Dose: 12.5 mg Admin: 10/27/19 10:16 Dose: 12.5 mg Losartan Potassium (Cozaar) 12.5 mg PO DAILY [facility] Last Admin: 10/28/19 08:37 Dose: 12.5 mg Admin: 10/27/19 11:35 Dose: 12.5 mg Cod Liver Oil [Cod (Liver Oil] 1 Tab) 1 each PO DAILY [facility] Last Admin: 10/28/19 08:40 Dose: Not Given Admin: 10/27/19 10:18 Dose: Not Given Sodium Chloride (Saline Flush) 2.5 ml FLUSH ASDIRECTED PRN PRN Reason: Keep Vein Open Sodium Chloride (Saline Flush) 10 ml FLUSH ASDIRECTED PRN PRN Reason: Keep Vein Open Sodium Chloride (Saline Flush) 2.5 ml FLUSH ASDIRECTED PRN PRN Reason: Keep Vein Open Tamsulosin HCl (Flomax) 0.4 mg PO DAILY [facility] Last Admin: 10/28/19 08:36 Dose: 0.4 mg Admin: 10/27/19 10:15 Dose: 0.4 mg Labs: Laboratory Tests 10/26/19 10/26/19 10/26/19 Range/Units 19:45 19:45 21:00 WBC 8.42 (4.0-11.0) K/uL RBC 3.52 L (4.50-5.90) M/uL Hgb 10.7 L (13.0-17.0) g/dL Hct 33.1 L (38.0-50.0) % MCV 94.0 (80.0-98.0) fL MCH 30.4 (27.0-32.0) pg MCHC 32.3 (31.0-37.0) g/dL RDW Std Deviation 45.5 (28.0-62.0) fl RDW Coeff of Eugenia 13 (11.0-15.0) % Plt Count 157 (150-400) K/uL MPV 10.40 (7.40-12.00) fL Neut % (Auto) 66.4 (48.0-80.0) % Lymph % (Auto) 14.3 L (16.0-40.0) % [place] % (Auto) 10.5 (0.0-15.0) % Eos % (Auto) 8.6 H (0.0-7.0) % Baso % (Auto) 0.2 (0.0-1.5) % Neut # (Auto) 5.6 (1.4-5.7) K/uL Lymph # (Auto) 1.2 (0.6-2.4) K/uL [place] # (Auto) 0.9 H (0.0-0.8) K/uL Eos # (Auto) 0.7 (0.0-0.7) K/uL Baso # (Auto) 0.0 (0.0-0.1) K/uL Nucleated RBC % 0.0 /100WBC Nucleated RBCs # 0 K/uL Sodium 138 (136-148) mmol/L Potassium 3.7 (3.5-5.1) mmol/L Chloride 101 (98-107) mmol/L Carbon Dioxide 25.7 (21.0-32.0) mmol/L BUN 40 H (7.0-18.0) mg/dL Creatinine 2.4 H (0.8-1.3) mg/dL Est Cr Clr Drug Dosing 22.54 mL/min Estimated GFR (MDRD) 25.7 ml/min Glucose 187 H (74-106) mg/dL Calcium 8.5 (8.5-10.1) mg/dL Total Bilirubin 0.6 (0.2-1.0) mg/dL AST 21 (15-37) IU/L ALT 25 (14-63) IU/L Alkaline Phosphatase 75 (46-116) U/L Total Protein 6.8 (6.4-8.2) g/dL Albumin 3.2 L (3.4-5.0) g/dL Globulin 3.6 (2.6-4.0) g/dL Albumin/Globulin Ratio 0.9 (0.9-1.6) Lipase 54 L (73-393) U/L Urine Color YELLOW Urine Appearance CLEAR Urine pH 6.0 (5.0-8.0) Ur Specific [place] 1.010 (1.001-1.035) Urine Protein NEGATIVE (NEGATIVE) mg/dL Urine Glucose (UA) NEGATIVE (NEGATIVE) mg/dL Urine Ketones NEGATIVE (NEGATIVE) mg/dL Urine Occult Blood NEGATIVE (NEGATIVE) Urine Nitrite NEGATIVE (NEGATIVE) Urine Bilirubin NEGATIVE (NEGATIVE) Urine Urobilinogen 0.2 (<2.0) EU/dL Ur Leukocyte Esterase NEGATIVE (NEGATIVE) Meds: Medications Generic Name Dose Route Start Last Admin Trade Name Freq PRN Reason Stop Dose Admin Acetaminophen 650 mg 10/27/19 01:28 Tylenol PO Q4H PRN Pain (Mild 1-3)/fever Albuterol/Ipratropium 3 ml 10/27/19 01:28 Duoneb 3.0-0.5 Mg/3 Ml NEB Q4HRRT PRN Shortness Of Breath/wheezing Aspirin 81 mg 10/27/19 09:00 10/28/19 08:33 Halfprin PO 81 mg DAILY [facility] Administration Atorvastatin Calcium 20 mg 10/27/19 21:00 10/27/19 20:32 Lipitor PO 20 mg BEDTIME [facility] Administration Docusate Sodium 100 mg 10/27/19 10:47 10/28/19 08:33 Colace PO 100 mg BID PRN Administration Constipation Doxycycline Hyclate 100 mg 10/27/19 09:36 10/28/19 08:36 Vibramycin PO 100 mg Q12HR [facility] Administration Guaifenesin 200 mg 10/27/19 10:15 10/28/19 08:28 Robitussin PO 200 mg Q4H PRN Administration Cough Heparin Sodium (Porcine) 5,000 units 10/27/19 01:30 10/28/19 10:15 Heparin Sodium SUBCUT 5,000 units Q8H [facility] Administration Hydrochlorothiazide 12.5 mg 10/27/19 09:00 10/28/19 08:36 Hydrochlorothiazide PO 12.5 mg DAILY [facility] Administration Losartan Potassium 12.5 mg 10/27/19 10:45 10/28/19 08:37 Cozaar PO 12.5 mg DAILY [facility] Administration Cod Liver Oil [Cod 1 each 10/27/19 09:00 10/28/19 08:40 Liver Oil] 1 Tab PO Not Given DAILY [facility] Sodium Chloride 2.5 ml 10/26/19 19:14 Saline Flush FLUSH ASDIRECTED PRN Keep Vein Open Sodium Chloride 10 ml 10/26/19 19:14 Saline Flush FLUSH ASDIRECTED PRN Keep Vein Open Sodium Chloride 2.5 ml 10/26/19 19:14 Saline Flush FLUSH ASDIRECTED PRN Keep Vein Open Tamsulosin HCl 0.4 mg 10/27/19 09:00 10/28/19 08:36 Flomax PO 0.4 mg DAILY [facility] Administration Discontinued Medications Generic Name Dose Route Start Last Admin Trade Name Freq PRN Reason Stop Dose Admin Benzonatate 100 mg 10/26/19 23:13 10/26/19 23:36 Tessalon Perles PO 10/26/19 23:14 100 mg ONETIME ONE Administration Guaifenesin 200 mg 10/27/19 07:42 Robitussin PO Q4H PRN Cough Lactated Ringer's 1,000 mls @ 125 mls/hr 10/27/19 01:30 10/28/19 11:31 Ringers, Lactated IV 125 mls/hr ASDIRECTED TABATHA Administration - Re-Assessments/Exams Free Text/Narrative Re-Assessment/Exam: 10/28/19 07:35 here with cough and fever. no pna on xray, patient will need to be admitted as he is from residential living facility. covid test sent out. non toxic appearing abx defferred. case discussed with dr Miller. luis consented to the covid test. 10/28/19 14:50 Departure - Departure Time of Disposition: 01:00 Disposition: Admitted As Inpatient 68 Clinical Impression: Cough - Discharge Information Sepsis Event Note - Evaluation Sepsis Screening Result: No Definite Risk - Focused Exam Date Exam was Performed: 10/28/19 Time Exam was Performed: 14:52
[2019-10-26 20:11] LABS: CARBON DIOXIDE,CO2 25.7 mmol/L (21.0-32.0); POTASSIUM,K 3.7 mmol/L (3.5-5.1)
--- NOTE | 2019-10-26 20:18 | CR ---
Chest: Portable view of the chest was obtained. Comparison: Prior chest x-ray of 06/21/18. Nodule is noted within the right upper lung. This appears somewhat dense but is increased in size from previous exam. Interstitial changes are seen within both lungs which appear stable. Lucency is seen within the lateral right chest and difficult to exclude a loculated pneumothorax. Heart size is normal. Tortuous or aneurysmal aorta is seen. Bony structures are grossly intact. Impression: 1. Increasing size of a nodule within the right upper chest. 2. Possible loculated pneumothorax within the right lateral chest. Noncontrast chest CT is recommended to confirm. 3. Tortuous or aneurysmal aorta. 4. Interstitial change which appears to be chronic. Diagnostic code #5 Study was dictated in MDT
[2019-10-26] MEDS ORDERED: Benzonatate 100 MG Cap PO ONE (23:13)
--- NOTE | 2019-10-26 23:17 | CT ---
INDICATION: Cough, fever, loculated pneumothorax on right upper chest on chest x-ray COMPARISON: Single-view chest radiograph 10/26/2019 TECHNIQUE: Nonenhanced axial CT imaging through the chest. Sagittal and coronal reconstructions are provided. FINDINGS: There is focal bronchiectasis and scarring in the posterior right upper lobe. Mild scattered subpleural scarring is also noted in the lung bases. There is no airspace consolidation, pulmonary vascular congestion, pleural effusion, or pneumothorax. No lymphadenopathy is appreciated in the mediastinum and pulmonary [place]. The heart is nonenlarged. Coronary artery disease is present. There is no pericardial effusion. The main pulmonary artery is nondilated. The ascending aorta is ectatic, measuring up to 4.5 cm. The thoracic osseous structures are unremarkable. No abnormality is demonstrated in the visualized upper abdomen. IMPRESSION: 1. No pneumothorax. Abnormality on chest radiograph is artifactual, likely caused by overlying skin fold. 2. Focal bronchiectasis and scarring in the posterior right upper lobe and mild bibasilar subpleural scarring. 3. No evidence of pneumonia. Please note that all CT scans at this facility use dose modulation, iterative reconstruction, and/or weight-based dosing when appropriate to reduce radiation dose to as low as reasonably achievable. Dictated by Surinder Miller MD @ Oct 26 2019 10:59PM Signed by Dr. Surinder Miller @ Oct 26 2019 11:15PM
[2019-10-27] MEDS ORDERED: Acetaminophen 325 MG Tab PO PRN (01:28)
[2019-10-27] MEDS ORDERED: Albuterol/Ipratropium 3.0-0.5 MG/3 ML Neb Soln NEB PRN (01:28)
[2019-10-27] MEDS: Heparin Sodium 5,000 Units/ML Vial SUBCUT SCH ×4 (03:24→18:06)
[2019-10-27] MEDS: Lactated Ringers 1,000 ML IV SCH ×3 (03:41→20:38)
[2019-10-27] MEDS ORDERED: guaiFENesin 100 MG/5 ML Soln 10 ML UD Cup PO PRN (07:42)
--- NOTE | 2019-10-27 08:35 | PCM.HP.2 ---
<Herson Watkins M - Last Filed: 10/27/19 12:41> H&P History of Present Illness - General Date of Service: 10/27/19 Admit Problem/Dx: Admission Diagnosis/Problem Admission Diagnosis/Problem Fever Source of Information: Patient History Limitations: Reports: Other (poor historian) - History of Present Illness Initial Comments - Free Text/Narative: 89-year-old male, [facility] resident, presented with fever of 102 F and cough. He has a PMH of stroke, normal pressure hydrocephalus, HTN, CKD, CAD and dementia. History primarily obtained through chart review as patient is a poor historian. Per ER note, patient's daughter notified by [facility] nursing staff that patient had fever and cough earlier in the afternoon. At bedside, patient reports no complaints and is not aware of why he is in the hospital. In the ER, CXR showed possible loculated pneumothorax and CT chest was recommended. CT chest was then obtained which showed no pneumothorax but did show bronchiectasis. Patient was afebrile on presentation to ER. CBC unremarkable. Creatinine was 2.4. Patient admitted for further evaluation and treatment. - Related Data Allergies/Adverse Reactions: Allergies Allergy/AdvReac Type Severity Reaction Status Date / Time bupropion [From Wellbutrin] Allergy Other Verified 10/28/19 00:43 citalopram Allergy Other Verified 10/28/19 00:43 Home Medications: Home Meds Tamsulosin [Flomax] 0.4 mg PO DAILY 11/16/14 [History] Cod Liver Oil 1 tab PO DAILY 09/13/16 [History] Losartan [Cozaar] 12.5 mg PO DAILY 09/13/16 [History] Multivitamin [Multivitamins] 1 cap PO DAILY 09/13/16 [History] hydroCHLOROthiazide [Hydrochlorothiazide] 12.5 mg PO DAILY 07/21/18 [History] Aspirin [Adult Low Dose Aspirin EC] 81 mg PO DAILY 08/27/19 [History] atorvaSTATin [Lipitor] 20 mg PO BEDTIME 10/26/19 [History] Doxycycline [Vibramycin] 100 mg PO BID 3 Days #6 cap 10/29/19 [Rx] Past Medical History HEENT History: Reports: Impaired Vision, Other (See Below) Other HEENT History: wears glasses Cardiovascular History: Reports: Hypertension Respiratory History: Reports: None Gastrointestinal History: Reports: None Genitourinary History: Reports: Chronic Renal Insuffiency Musculoskeletal History: Reports: None Neurological History: Reports: Other (See Below) Other Neuro History: Dementia Psychiatric History: Reports: Anxiety, Depression Other Psychiatric History: confusion Endocrine/Metabolic History: Reports: None Hematologic History: Reports: Anemia Immunologic History: Reports: None Oncologic (Cancer) History: Reports: None Dermatologic History: Reports: None - Infectious Disease History Infectious Disease History: Reports: Chicken Pox Other Infectious Disease History: tuberculosis - Past Surgical History HEENT Surgical History: Reports: Cataract Surgery Cardiovascular Surgical History: Reports: None Neurological Surgical History: Reports: None Social & Family History - Family History Family Medical History: Noncontributory - Tobacco Use Smoking Status *Q: Former Smoker Used Tobacco, but Quit: No - Caffeine Use Caffeine Use: Reports: None Caffeine Use Comment: 5/day - Recreational Drug Use Recreational Drug Use: No H&P Review of Systems - Review of Systems: Review Of Systems: Comprehensive ROS is negative, except as noted in HPI. Exam - Exam Exam: See Below - Vital Signs Vital Signs: Last Vital Signs Temp 98.4 F 10/27/19 07:00 Pulse 83 10/27/19 07:00 Resp 17 10/27/19 07:00 BP 148/78 H 10/27/19 07:00 Pulse Ox 96 10/27/19 07:00 Weight: 67 kg - Exam General: Alert, Other (AO x 1.) HEENT: Conjunctiva Clear, EOMI, Hearing Intact, Pupils Equal, Pupils Reactive, Other (pharyngeal erythema) Neck: Supple, Trachea Midline Lungs: Clear to Auscultation, Normal Respiratory Effort Cardiovascular: Regular Rate, Regular Rhythm GI/Abdominal Exam: Normal Bowel Sounds, Soft, Non-Tender, No Distention Extremities: Normal Inspection, No Pedal Edema Peripheral Pulses: 2+: Radial (L), Radial (R) Skin: Warm, Dry, Intact Neurological: Cranial Nerves Intact, Strength Equal Bilateral, Normal Speech, Normal Tone Neuro Extensive - Mental Status: Disorientation to Place, Disorientation to Time Psychiatric: Alert, Normal Affect, Normal Mood - Patient Data Lab Results Last 24 hrs: Laboratory Results - last 24 hr 10/26/19 10/26/19 10/26/19 Range/Units 19:45 19:45 21:00 WBC 8.42 (4.0-11.0) K/uL RBC 3.52 L (4.50-5.90) M/uL Hgb 10.7 L (13.0-17.0) g/dL Hct 33.1 L (38.0-50.0) % MCV 94.0 (80.0-98.0) fL MCH 30.4 (27.0-32.0) pg MCHC 32.3 (31.0-37.0) g/dL RDW Std Deviation 45.5 (28.0-62.0) fl RDW Coeff of Eugenia 13 (11.0-15.0) % Plt Count 157 (150-400) K/uL MPV 10.40 (7.40-12.00) fL Neut % (Auto) 66.4 (48.0-80.0) % Lymph % (Auto) 14.3 L (16.0-40.0) % [place] % (Auto) 10.5 (0.0-15.0) % Eos % (Auto) 8.6 H (0.0-7.0) % Baso % (Auto) 0.2 (0.0-1.5) % Neut # (Auto) 5.6 (1.4-5.7) K/uL Lymph # (Auto) 1.2 (0.6-2.4) K/uL [place] # (Auto) 0.9 H (0.0-0.8) K/uL Eos # (Auto) 0.7 (0.0-0.7) K/uL Baso # (Auto) 0.0 (0.0-0.1) K/uL Nucleated RBC % 0.0 /100WBC Nucleated RBCs # 0 K/uL Sodium 138 (136-148) mmol/L Potassium 3.7 (3.5-5.1) mmol/L Chloride 101 (98-107) mmol/L Carbon Dioxide 25.7 (21.0-32.0) mmol/L BUN 40 H (7.0-18.0) mg/dL Creatinine 2.4 H (0.8-1.3) mg/dL Est Cr Clr Drug Dosing 22.54 mL/min Estimated GFR (MDRD) 25.7 ml/min Glucose 187 H (74-106) mg/dL Calcium 8.5 (8.5-10.1) mg/dL Total Bilirubin 0.6 (0.2-1.0) mg/dL AST 21 (15-37) IU/L ALT 25 (14-63) IU/L Alkaline Phosphatase 75 (46-116) U/L Total Protein 6.8 (6.4-8.2) g/dL Albumin 3.2 L (3.4-5.0) g/dL Globulin 3.6 (2.6-4.0) g/dL Albumin/Globulin Ratio 0.9 (0.9-1.6) Lipase 54 L (73-393) U/L Urine Color YELLOW Urine Appearance CLEAR Urine pH 6.0 (5.0-8.0) Ur Specific [place] 1.010 (1.001-1.035) Urine Protein NEGATIVE (NEGATIVE) mg/dL Urine Glucose (UA) NEGATIVE (NEGATIVE) mg/dL Urine Ketones NEGATIVE (NEGATIVE) mg/dL Urine Occult Blood NEGATIVE (NEGATIVE) Urine Nitrite NEGATIVE (NEGATIVE) Urine Bilirubin NEGATIVE (NEGATIVE) Urine Urobilinogen 0.2 (<2.0) EU/dL Ur Leukocyte Esterase NEGATIVE (NEGATIVE) Result Diagrams: 10/27/19 08:22 10/27/19 08:22 Woo Results Last 24 hrs: Microbiology 10/26/19 19:45 Influenza Type A Antigen Screen - Final Nasopharyngeal Swab NEGATIVE INFLUENZA A VIRUS AG REFERENCE RANGE: NEGATIVE Influenza Type B Antigen Screen - Final NEGATIVE INFLUENZA B VIRUS AG REFERENCE RANGE: NEGATIVE Sepsis Event Note - Evaluation Sepsis Screening Result: No Definite Risk - Focused Exam Vital Signs: Vital Signs Temp Temp Pulse Resp BP BP Pulse Ox 10/27/19 07:00 98.4 F 83 17 148/78 H 96 10/27/19 05:49 99.0 F 88 18 129/67 95 10/27/19 03:03 98.5 F 79 20 137/71 95 10/27/19 01:55 98.0 F 75 21 H 132/73 95 10/26/19 23:39 96.7 F L 80 21 H 137/75 96 Date Exam was Performed: 10/27/19 Time Exam was Performed: 12:41 Problem List Initiated/Reviewed/Updated: Yes Orders Last 24hrs: Active Orders 24 hr Category Date Time Status Admission Status [Patient Status] [ADT] Stat ADT 10/27/19 00:28 Active Ambulate [RC] ASDIRECTED Care 10/27/19 01:28 Active Oxygen Therapy [RC] PRN Care 10/27/19 01:29 Active Pulse Oximetry [RC] PRN Care 10/27/19 01:29 Active RT Aerosol Therapy [RC] ASDIRECTED Care 10/27/19 01:30 Active VTE/DVT Education [RC] PER UNIT ROUTINE Care 10/27/19 01:29 Active Vital Signs [RC] Q4H Care 10/27/19 01:29 Active Heart Healthy Diet [DIET] Diet 10/27/19 Breakfast Active CBC WITH AUTO DIFF [HEME] Urgent Lab 10/27/19 08:03 Ordered COMPREHENSIVE METABOLIC PN,CMP [CHEM] Urgent Lab 10/27/19 08:03 Ordered CORONAVIRUS (COVID-19) PCR [MREF] Stat Lab 10/27/19 00:50 Ordered CULTURE BLOOD [BC] Stat Lab 10/27/19 00:00 Received CULTURE BLOOD [BC] Stat Lab 10/27/19 00:45 Received CULTURE URINE [RM] Stat Lab 10/26/19 21:00 Received Acetaminophen [Tylenol] Med 10/27/19 01:28 Active 650 mg PO Q4H PRN Albuterol/Ipratropium [DuoNeb 3.0-0.5 MG/3 ML] Med 10/27/19 01:28 Active 3 ml NEB Q4HRRT PRN Heparin Sodium Med 10/27/19 01:30 Active 5,000 units SUBCUT Q8H Lactated Ringers [Ringers, Lactated] 1,000 ml Med 10/27/19 01:30 Active IV ASDIRECTED Sodium Chloride 0.9% [Saline Flush] Med 10/26/19 19:14 Active 10 ml FLUSH ASDIRECTED PRN Sodium Chloride 0.9% [Saline Flush] Med 10/26/19 19:14 Active 2.5 ml FLUSH ASDIRECTED PRN Sodium Chloride 0.9% [Saline Flush] Med 10/26/19 19:14 Active 2.5 ml FLUSH ASDIRECTED PRN guaiFENesin [Robitussin] Med 10/27/19 07:42 Active 200 mg PO Q4H PRN Blood Culture x2 Reflex Set [OM.PC] Stat Oth 10/27/19 00:12 Ordered Isolation [COMM] Routine Oth 10/26/19 19:40 Active Saline Lock Insert [OM.PC] Stat Oth 10/26/19 19:14 Ordered Medication Orders Acetaminophen (Tylenol) 650 mg PO Q4H PRN PRN Reason: Pain (Mild 1-3)/fever Albuterol/Ipratropium (Duoneb 3.0-0.5 Mg/3 Ml) 3 ml NEB Q4HRRT PRN PRN Reason: Shortness Of Breath/wheezing Guaifenesin (Robitussin) 200 mg PO Q4H PRN PRN Reason: Cough Heparin Sodium (Porcine) (Heparin Sodium) 5,000 units SUBCUT Q8H [facility] Last Admin: 10/27/19 08:28 Dose: Lactated Ringer's (Ringers, Lactated) 1,000 mls @ 125 mls/hr IV ASDIRECTED [facility] Last Admin: 10/27/19 03:41 Dose: 125 mls/hr Sodium Chloride (Saline Flush) 2.5 ml FLUSH ASDIRECTED PRN PRN Reason: Keep Vein Open Sodium Chloride (Saline Flush) 10 ml FLUSH ASDIRECTED PRN PRN Reason: Keep Vein Open Sodium Chloride (Saline Flush) 2.5 ml FLUSH ASDIRECTED PRN PRN Reason: Keep Vein Open Assessment/Plan Comment:: Assessment and Plan: 1. Fever likely secondary to acute bronchitis: - Patient fever was reportedly 102 F at [facility]. Patient has been afebrile overnight and vital signs stable. Influenza test negative. COVID19 test pending. Blood cultures pending. UA was unremarkable. CT chest showed no areas of focal consolidation and no pneumothorax. Will treat for acute bronchitis with doxycycline. 2. Acute kidney injury, improving: - Patient does have history of CKD. Per chart review, baseline creatinine is 2.0 and is 2.4 on admission. Continue IV LR's 125 cc/hr. Will continue to monitor. 3. Past medical history of stroke, normal pressure hydrocephalus, HTN and dementia: - Resume home medications. 4. DVT prophylaxis: heparin. <Thang Miller - Last Filed: 11/06/19 15:12> H&P History of Present Illness - General Admit Problem/Dx: Admission Diagnosis/Problem Admission Diagnosis/Problem Fever Exam - Vital Signs Vital Signs: Last Vital Signs Temp 36.9 C 10/29/19 10:08 Pulse 84 10/29/19 10:08 Resp 18 10/29/19 05:47 BP 132/66 10/29/19 10:08 Pulse Ox 96 10/29/19 05:47 - Patient Data Result Diagrams: 10/28/19 06:15 10/28/19 06:15 - Problem List (1) Fever SNOMED Code(s): 255236022 ICD Code: R50.9 - FEVER, UNSPECIFIED Status: Acute (2) Cough SNOMED Code(s): 61336469 ICD Code: R05 - COUGH Status: Acute Assessment/Plan Comment:: I performed history and physical exam of this patient independently and Agree with the above outlined management plan that was discussed with the resident in detail.
[2019-10-27 09:21] LABS: CARBON DIOXIDE,CO2 26.8 mmol/L (21.0-32.0); POTASSIUM,K 3.9 mmol/L (3.5-5.1)
[2019-10-27] MEDS: Tamsulosin 0.4 MG Cap.ER PO SCH (10:15)
[2019-10-27] MEDS: Hydrochlorothiazide 12.5 MG Cap PO SCH (10:16)
[2019-10-27] MEDS: Aspirin 81 MG Tab.EC PO SCH (10:16)
[2019-10-27] MEDS: COD LIVER OIL PO SCH (10:18)
[2019-10-27] MEDS: Doxycycline 100 MG Cap PO SCH ×2 (10:18→20:32)
[2019-10-27] MEDS: Losartan 50 MG Tab PO SCH (11:35)
[2019-10-27] MEDS: Docusate Sodium 100 MG Cap PO PRN (11:39)
[2019-10-27] MEDS: guaiFENesin 100 MG/5 ML Soln 5 ML UD Cup PO PRN ×2 (13:48→20:34)
[2019-10-27] MEDS: atorvaSTATin 40 MG Tab PO SCH (20:32)
[2019-10-28] MEDS: Heparin Sodium 5,000 Units/ML Vial SUBCUT SCH ×3 (01:43→18:50)
[2019-10-28 06:46] LABS: CARBON DIOXIDE,CO2 27.1 mmol/L (21.0-32.0); POTASSIUM,K 3.9 mmol/L (3.5-5.1)
[2019-10-28] MEDS: guaiFENesin 100 MG/5 ML Soln 5 ML UD Cup PO PRN ×2 (08:28→15:15)
[2019-10-28] MEDS: Docusate Sodium 100 MG Cap PO PRN (08:33)
[2019-10-28] MEDS: Aspirin 81 MG Tab.EC PO SCH (08:33)
[2019-10-28] MEDS: Doxycycline 100 MG Cap PO SCH ×2 (08:36→20:05)
[2019-10-28] MEDS: Hydrochlorothiazide 12.5 MG Cap PO SCH (08:36)
[2019-10-28] MEDS: Tamsulosin 0.4 MG Cap.ER PO SCH (08:36)
[2019-10-28] MEDS: Losartan 50 MG Tab PO SCH (08:37)
[2019-10-28] MEDS: COD LIVER OIL PO SCH (08:40)
[2019-10-28] MEDS: Lactated Ringers 1,000 ML IV SCH (11:31)
--- NOTE | 2019-10-28 12:06 | PCM.PN ---
- General Info Date of Service: 10/28/19 Admission Dx/Problem (Free Text): Admission Diagnosis/Problem Admission Diagnosis/Problem Fever Subjective Update: seen and examined at bedside, no acute distress - Review of Systems General: Denies: Fever, Weakness Pulmonary: Denies: Shortness of Breath, Pleuritic Chest Pain Cardiovascular: Denies: Chest Pain, Palpitations Gastrointestinal: Denies: Abdominal Pain, Constipation, Difficulty Swallowing Genitourinary: Reports: Frequency. Denies: Dysuria, Burning, Pain Musculoskeletal: Denies: Neck Pain, Shoulder Pain, Arm Pain Skin: Denies: Cyanosis, Jaundice, Mottled Neurological: Denies: Confusion, Dizziness, Headache - Patient Data Vitals - Most Recent: Last Vital Signs Temp 36.7 C 10/28/19 08:21 Pulse 85 10/28/19 08:21 Resp 18 10/28/19 08:21 BP 120/74 10/28/19 08:37 Pulse Ox 95 10/28/19 08:21 Weight - Most Recent: 67 kg I&O - Last 24 Hours: Intake & Output 10/27/19 10/28/19 10/28/19 22:59 06:59 14:59 Intake Total 840 3030 Output Total 1200 1050 Balance -360 1980 Lab Results Last 24 Hours: Laboratory Results - last 24 hr 10/28/19 10/28/19 Range/Units 06:15 06:15 WBC 7.03 (4.0-11.0) K/uL RBC 3.17 L (4.50-5.90) M/uL Hgb 9.7 L (13.0-17.0) g/dL Hct 29.9 L (38.0-50.0) % MCV 94.3 (80.0-98.0) fL MCH 30.6 (27.0-32.0) pg MCHC 32.4 (31.0-37.0) g/dL RDW Std Deviation 44.8 (28.0-62.0) fl RDW Coeff of Eugenia 13 (11.0-15.0) % Plt Count 138 L (150-400) K/uL MPV 10.20 (7.40-12.00) fL Neut % (Auto) 64.6 (48.0-80.0) % Lymph % (Auto) 13.9 L (16.0-40.0) % [place] % (Auto) 11.7 (0.0-15.0) % Eos % (Auto) 9.7 H (0.0-7.0) % Baso % (Auto) 0.1 (0.0-1.5) % Neut # (Auto) 4.5 (1.4-5.7) K/uL Lymph # (Auto) 1.0 (0.6-2.4) K/uL [place] # (Auto) 0.8 (0.0-0.8) K/uL Eos # (Auto) 0.7 (0.0-0.7) K/uL Baso # (Auto) 0.0 (0.0-0.1) K/uL Nucleated RBC % 0.0 /100WBC Nucleated RBCs # 0 K/uL Sodium 141 (136-148) mmol/L Potassium 3.9 (3.5-5.1) mmol/L Chloride 107 (98-107) mmol/L Carbon Dioxide 27.1 (21.0-32.0) mmol/L BUN 34 H (7.0-18.0) mg/dL Creatinine 1.9 H (0.8-1.3) mg/dL Est Cr Clr Drug Dosing 25.96 mL/min Estimated GFR (MDRD) 33.7 ml/min Glucose 118 H (74-106) mg/dL Calcium 8.3 L (8.5-10.1) mg/dL Total Bilirubin 0.5 (0.2-1.0) mg/dL AST 17 (15-37) IU/L ALT 17 (14-63) IU/L Alkaline Phosphatase 62 (46-116) U/L Total Protein 5.6 L (6.4-8.2) g/dL Albumin 2.6 L (3.4-5.0) g/dL Globulin 3.0 (2.6-4.0) g/dL Albumin/Globulin Ratio 0.9 (0.9-1.6) Woo Results Last 24 Hours: Microbiology 10/26/19 21:00 Urine Culture - Final Urine, Clean Catch MIXED NOE 1,000-10,000 CFU/ML 10/27/19 00:45 Aerobic Blood Culture - Preliminary Blood - Venous - Lab Draw NO GROWTH AFTER 1 DAY Anaerobic Blood Culture - Preliminary NO GROWTH AFTER 1 DAY 10/26/19 19:45 Aerobic Blood Culture - Preliminary Blood - Venous NO GROWTH AFTER 1 DAY Anaerobic Blood Culture - Preliminary NO GROWTH AFTER 1 DAY Med Orders - Current: Current Medications Acetaminophen (Tylenol) 650 mg PO Q4H PRN PRN Reason: Pain (Mild 1-3)/fever Albuterol/Ipratropium (Duoneb 3.0-0.5 Mg/3 Ml) 3 ml NEB Q4HRRT PRN PRN Reason: Shortness Of Breath/wheezing Aspirin (Halfprin) 81 mg PO DAILY COUNT INCLUDES THE [facility] Last Admin: 10/28/19 08:33 Dose: 81 mg Atorvastatin Calcium (Lipitor) 20 mg PO BEDTIME COUNT INCLUDES THE [facility] Last Admin: 10/27/19 20:32 Dose: 20 mg Docusate Sodium (Colace) 100 mg PO BID PRN PRN Reason: Constipation Last Admin: 10/28/19 08:33 Dose: 100 mg Doxycycline Hyclate (Vibramycin) 100 mg PO Q12HR COUNT INCLUDES THE [facility] Last Admin: 10/28/19 08:36 Dose: 100 mg Guaifenesin (Robitussin) 200 mg PO Q4H PRN PRN Reason: Cough Last Admin: 10/28/19 08:28 Dose: 200 mg Heparin Sodium (Porcine) (Heparin Sodium) 5,000 units SUBCUT Q8H COUNT INCLUDES THE [facility] Last Admin: 10/28/19 10:15 Dose: 5,000 units Hydrochlorothiazide (Hydrochlorothiazide) 12.5 mg PO DAILY COUNT INCLUDES THE [facility] Last Admin: 10/28/19 08:36 Dose: 12.5 mg Lactated Ringer's (Ringers, Lactated) 1,000 mls @ 125 mls/hr IV ASDIRECTED COUNT INCLUDES THE [facility] Last Admin: 10/28/19 11:31 Dose: 125 mls/hr Losartan Potassium (Cozaar) 12.5 mg PO DAILY COUNT INCLUDES THE [facility] Last Admin: 10/28/19 08:37 Dose: 12.5 mg Cod Liver Oil [Cod (Liver Oil] 1 Tab) 1 each PO DAILY COUNT INCLUDES THE [facility] Last Admin: 10/28/19 08:40 Dose: Not Given Sodium Chloride (Saline Flush) 2.5 ml FLUSH ASDIRECTED PRN PRN Reason: Keep Vein Open Sodium Chloride (Saline Flush) 10 ml FLUSH ASDIRECTED PRN PRN Reason: Keep Vein Open Sodium Chloride (Saline Flush) 2.5 ml FLUSH ASDIRECTED PRN PRN Reason: Keep Vein Open Tamsulosin HCl (Flomax) 0.4 mg PO DAILY [facility] Last Admin: 10/28/19 08:36 Dose: 0.4 mg Discontinued Medications Benzonatate (Tessalon Perles) 100 mg PO ONETIME ONE Stop: 10/26/19 23:14 Last Admin: 10/26/19 23:36 Dose: 100 mg Guaifenesin (Robitussin) 200 mg PO Q4H PRN PRN Reason: Cough - Exam General: Alert, Oriented Neck: Supple, Trachea Midline Lungs: Clear to Auscultation, Normal Respiratory Effort Cardiovascular: Regular Rate, Regular Rhythm GI/Abdominal Exam: Normal Bowel Sounds, Soft, Non-Tender Extremities: Normal Inspection, Normal Range of Motion, Non-Tender Peripheral Pulses: 3+: Dorsalis Pedis (L), Dorsalis Pedis (R) Skin: Warm, Dry, Intact Sepsis Event Note - Evaluation Sepsis Screening Result: No Definite Risk - Focused Exam Vital Signs: Vital Signs Temp Pulse Resp BP BP BP Pulse Ox 10/28/19 08:37 120/74 10/28/19 08:21 36.7 C 85 18 120/74 95 10/28/19 03:00 37.1 C 85 16 137/76 91 L Date Exam was Performed: 10/28/19 Time Exam was Performed: 14:58 - Problem List & Annotations (1) Fever SNOMED Code(s): 666777000 Code(s): R50.9 - FEVER, UNSPECIFIED Status: Acute Current Visit: Yes (2) Cough SNOMED Code(s): 69367254 Code(s): R05 - COUGH Status: Acute Current Visit: Yes - Problem List Review Problem List Initiated/Reviewed/Updated: Yes - Plan Plan:: Assessment and Plan: 1. Fever likely secondary to acute bronchitis: - Patient has been afebrile since admission and vital signs stable. Influenza test negative. COVID19 test pending. Blood cultures negative so far. UA was unremarkable. CT chest showed no areas of focal consolidation and no pneumothorax. cont doxycycline for bronchitis, cough has improved. 2. Acute kidney injury, improving: - stop IVFs, patient eating and drinking well. 3. Past medical history of stroke, normal pressure hydrocephalus, HTN and dementia: - Resume home medications. 4. DVT prophylaxis: heparin.
[2019-10-28] MEDS: atorvaSTATin 40 MG Tab PO SCH (20:05)
[2019-10-29] MEDS: Heparin Sodium 5,000 Units/ML Vial SUBCUT SCH ×2 (02:21→10:04)
[2019-10-29] MEDS: Losartan 50 MG Tab PO SCH (10:04)
[2019-10-29] MEDS: Doxycycline 100 MG Cap PO SCH (10:04)
[2019-10-29] MEDS: Aspirin 81 MG Tab.EC PO SCH (10:04)
[2019-10-29] MEDS: Hydrochlorothiazide 12.5 MG Cap PO SCH (10:04)
[2019-10-29] MEDS: Tamsulosin 0.4 MG Cap.ER PO SCH (10:04)
[2019-10-29 10:05] VITALS: BP 132/66
[2019-10-29] MEDS: COD LIVER OIL PO SCH (10:05)
[2019-10-29 10:08] VITALS: PULSE 84
--- NOTE | 2019-10-29 13:28 | PCM.DCSUM1 ---
<Herson Watkins - Last Filed: 10/29/19 13:34> Discharge Summary - Hospital Course Free Text/Narrative:: 89-year-old male admitted for fever secondary to acute bronchitis and DENIA. He has a PMH of stroke, normal pressure hydrocephalus, HTN and dementia. He is a [facility] resident. On day of admission, it was reported by detention staff that patient had a fever of 102 F and cough so he was sent to ER. Patient was afebrile throughout his hospitalization. Influenza test was negative. Blood cultures negative. COVID19 test negative. CXR showed possible loculated pneumothorax. CT chest was then done and showed no pneumothorax and no areas of focal consolidation. Patient was started on doxycycline for acute bronchitis. For DENIA, patient started on IV fluids and by day of discharge his creatinine returned to his baseline of 1.9. Patient discharged on 3 more days of doxycycline. Patient discharged in stable condition back to [facility]. - Discharge Data Discharge Date: 10/29/19 Discharge Disposition: DC/Tfer to [facility], [place] [facility] Condition: Stable - Referral to Home Health Primary Care Physician: Guillermo Cobos MD - Patient Instructions Diet: Regular Diet as Tolerated Diet, Other: Sodium < 2 g per day Activity: As Tolerated Notify Provider of: Fever, Increased Pain, Swelling and Redness, Drainage, Nausea and/or Vomiting - Discharge Plan *PRESCRIPTION DRUG MONITORING PROGRAM REVIEWED*: Not Applicable *COPY OF PRESCRIPTION DRUG MONITORING REPORT IN PATIENT AVERY: Not Applicable Prescriptions/Med Rec: Doxycycline [Vibramycin] 100 mg PO BID 3 Days #6 cap Home Medications: Home Meds Tamsulosin [Flomax] 0.4 mg PO DAILY 11/16/14 [History] Cod Liver Oil 1 tab PO DAILY 09/13/16 [History] Losartan [Cozaar] 12.5 mg PO DAILY 09/13/16 [History] Multivitamin [Multivitamins] 1 cap PO DAILY 09/13/16 [History] hydroCHLOROthiazide [Hydrochlorothiazide] 12.5 mg PO DAILY 07/21/18 [History] Aspirin [Adult Low Dose Aspirin EC] 81 mg PO DAILY 08/27/19 [History] atorvaSTATin [Lipitor] 20 mg PO BEDTIME 10/26/19 [History] Doxycycline [Vibramycin] 100 mg PO BID 3 Days #6 cap 10/29/19 [Rx] Oxygen Therapy Mode: Room Air Patient Handouts: Fever, Adult Referrals: Guillermo Cobos MD [Primary Care Provider] - 11/05/19 (Will be Seen on [place] Rounds) - Discharge Summary/Plan Comment DC Time >30 min.: No - Patient Data Vitals - Most Recent: Last Vital Signs Temp 98.4 F 10/29/19 10:08 Pulse 84 10/29/19 10:08 Resp 18 10/29/19 05:47 BP 132/66 10/29/19 10:08 Pulse Ox 96 10/29/19 05:47 Weight - Most Recent: 67 kg I&O - Last 24 hours: Intake & Output 10/28/19 10/29/19 10/29/19 22:59 06:59 14:59 Intake Total 380 Output Total 650 Balance -270 CASSIDY Results - Last 24 hrs: Microbiology 10/27/19 00:45 Aerobic Blood Culture - Preliminary Blood - Venous - Lab Draw NO GROWTH AFTER 2 DAYS Anaerobic Blood Culture - Preliminary NO GROWTH AFTER 2 DAYS 10/26/19 19:45 Aerobic Blood Culture - Preliminary Blood - Venous NO GROWTH AFTER 2 DAYS Anaerobic Blood Culture - Preliminary NO GROWTH AFTER 2 DAYS 10/26/19 19:45 Coronavirus RNA (PCR) - Final Nares, Unspecified 10/26/19 21:00 Urine Culture - Final Urine, Clean Catch MIXED NOE 1,000-10,000 CFU/ML Med Orders - Current: Current Medications Acetaminophen (Tylenol) 650 mg PO Q4H PRN PRN Reason: Pain (Mild 1-3)/fever Albuterol/Ipratropium (Duoneb 3.0-0.5 Mg/3 Ml) 3 ml NEB Q4HRRT PRN PRN Reason: Shortness Of Breath/wheezing Aspirin (Halfprin) 81 mg PO DAILY [facility] Last Admin: 10/29/19 10:04 Dose: 81 mg Atorvastatin Calcium (Lipitor) 20 mg PO BEDTIME TABATHA Last Admin: 10/28/19 20:05 Dose: 20 mg Docusate Sodium (Colace) 100 mg PO BID PRN PRN Reason: Constipation Last Admin: 10/28/19 08:33 Dose: 100 mg Doxycycline Hyclate (Vibramycin) 100 mg PO Q12HR TABATHA Last Admin: 10/29/19 10:04 Dose: 100 mg Guaifenesin (Robitussin) 200 mg PO Q4H PRN PRN Reason: Cough Last Admin: 10/28/19 15:15 Dose: 200 mg Heparin Sodium (Porcine) (Heparin Sodium) 5,000 units SUBCUT Q8H [facility] Last Admin: 10/29/19 10:04 Dose: Not Given Hydrochlorothiazide (Hydrochlorothiazide) 12.5 mg PO DAILY [facility] Last Admin: 10/29/19 10:04 Dose: 12.5 mg Losartan Potassium (Cozaar) 12.5 mg PO DAILY [facility] Last Admin: 10/29/19 10:04 Dose: 12.5 mg Cod Liver Oil [Cod (Liver Oil] 1 Tab) 1 each PO DAILY [facility] Last Admin: 10/29/19 10:05 Dose: Not Given Sodium Chloride (Saline Flush) 2.5 ml FLUSH ASDIRECTED PRN PRN Reason: Keep Vein Open Sodium Chloride (Saline Flush) 10 ml FLUSH ASDIRECTED PRN PRN Reason: Keep Vein Open Sodium Chloride (Saline Flush) 2.5 ml FLUSH ASDIRECTED PRN PRN Reason: Keep Vein Open Tamsulosin HCl (Flomax) 0.4 mg PO DAILY [facility] Last Admin: 10/29/19 10:04 Dose: 0.4 mg Discontinued Medications Benzonatate (Tessalon Perles) 100 mg PO ONETIME ONE Stop: 10/26/19 23:14 Last Admin: 10/26/19 23:36 Dose: 100 mg Guaifenesin (Robitussin) 200 mg PO Q4H PRN PRN Reason: Cough Lactated Ringer's (Ringers, Lactated) 1,000 mls @ 125 mls/hr IV ASDIRECTED [facility] Last Admin: 10/28/19 11:31 Dose: 125 mls/hr <Thang Miller - Last Filed: 11/06/19 15:12> Discharge Summary - Hospital Course Free Text/Narrative:: Patient was seen and examined by me along with the resident. Agree with the above outlined management plan. - Referral to Home Health Primary Care Physician: Guillermo Cobos MD - Discharge Diagnosis/Problem(s) (1) Fever SNOMED Code(s): 185086123 ICD Code: R50.9 - FEVER, UNSPECIFIED Status: Acute (2) Cough SNOMED Code(s): 87423084 ICD Code: R05 - COUGH Status: Acute - Patient Data Vitals - Most Recent: Last Vital Signs Temp 36.9 C 10/29/19 10:08 Pulse 84 10/29/19 10:08 Resp 18 10/29/19 05:47 BP 132/66 10/29/19 10:08 Pulse Ox 96 10/29/19 05:47 Med Orders - Current: Current Medications Discontinued Medications Acetaminophen (Tylenol) 650 mg PO Q4H PRN PRN Reason: Pain (Mild 1-3)/fever Albuterol/Ipratropium (Duoneb 3.0-0.5 Mg/3 Ml) 3 ml NEB Q4HRRT PRN PRN Reason: Shortness Of Breath/wheezing Aspirin (Halfprin) 81 mg PO DAILY [facility] Last Admin: 10/29/19 10:04 Dose: 81 mg Atorvastatin Calcium (Lipitor) 20 mg PO BEDTIME [facility] Last Admin: 10/28/19 20:05 Dose: 20 mg Benzonatate (Tessalon Perles) 100 mg PO ONETIME ONE Stop: 10/26/19 23:14 Last Admin: 10/26/19 23:36 Dose: 100 mg Docusate Sodium (Colace) 100 mg PO BID PRN PRN Reason: Constipation Last Admin: 10/28/19 08:33 Dose: 100 mg Doxycycline Hyclate (Vibramycin) 100 mg PO Q12HR [facility] Last Admin: 10/29/19 10:04 Dose: 100 mg Guaifenesin (Robitussin) 200 mg PO Q4H PRN PRN Reason: Cough Guaifenesin (Robitussin) 200 mg PO Q4H PRN PRN Reason: Cough Last Admin: 10/28/19 15:15 Dose: 200 mg Heparin Sodium (Porcine) (Heparin Sodium) 5,000 units SUBCUT Q8H [facility] Last Admin: 10/29/19 10:04 Dose: Not Given Hydrochlorothiazide (Hydrochlorothiazide) 12.5 mg PO DAILY [facility] Last Admin: 10/29/19 10:04 Dose: 12.5 mg Lactated Ringer's (Ringers, Lactated) 1,000 mls @ 125 mls/hr IV ASDIRECTED [facility] Last Admin: 10/28/19 11:31 Dose: 125 mls/hr Losartan Potassium (Cozaar) 12.5 mg PO DAILY [facility] Last Admin: 10/29/19 10:04 Dose: 12.5 mg Cod Liver Oil [Cod (Liver Oil] 1 Tab) 1 each PO DAILY [facility] Last Admin: 10/29/19 10:05 Dose: Not Given Sodium Chloride (Saline Flush) 2.5 ml FLUSH ASDIRECTED PRN PRN Reason: Keep Vein Open Sodium Chloride (Saline Flush) 10 ml FLUSH ASDIRECTED PRN PRN Reason: Keep Vein Open Sodium Chloride (Saline Flush) 2.5 ml FLUSH ASDIRECTED PRN PRN Reason: Keep Vein Open Tamsulosin HCl (Flomax) 0.4 mg PO DAILY [facility] Last Admin: 10/29/19 10:04 Dose: 0.4 mg
== END 2019-10-29 13:30 | DRG 202 ==
LOC: MW.ED 18:41 → OBSVTOIN 10-27 00:28 → MW.MS 10-27 00:28
PROVIDERS: ADMIT Student in an Organized Health Care Education/Training Program; ATTEND Student in an Organized Health Care Education/Training Program
DX: R50.9 Fever, unspecified (principal); R05 Cough; H54.7 Unspecified visual loss; J20.9 Acute bronchitis, unspecified; N17.9 Acute kidney failure, unspecified; G91.2 (Idiopathic) normal pressure hydrocephalus; F03.90 Unspecified dementia, unspecified severity, without behavioral disturbance, psychotic disturbance, mood disturbance, and anxiety; I25.10 Atherosclerotic heart disease of native coronary artery without angina pectoris; I12.9 Hypertensive chronic kidney disease with stage 1 through stage 4 chronic kidney disease, or unspecified chronic kidney disease; N18.9 Chronic kidney disease, unspecified; F32.9 Major depressive disorder, single episode, unspecified; F41.9 Anxiety disorder, unspecified; Z88.8 Allergy status to other drugs, medicaments and biological substances; Z79.82 Long term (current) use of aspirin; Z79.899 Other long term (current) drug therapy; Z98.49 Cataract extraction status, unspecified eye; Z86.73 Personal history of transient ischemic attack (TIA), and cerebral infarction without residual deficits; Z20.828 Contact with and (suspected) exposure to other viral communicable diseases
CPT/HCPCS: 36415 ×2; 71045; 71250; 80053; 81003; 83690; 85025; 87040; 87086; 87804 ×2; 99285; A9270; U0001; 99284; J1644; J7120; U0002